=== PATIENT | female | born 1985 | race Caucasian/White ===

== ENCOUNTER 2017-07-11 17:29 | Emergency (ER) | payer SELFPAY ==
[~2017-07-11] VITALS: Ht 160 cm; Wt 79.7 kg
[~2017-07-11 17:29] MED LIST: AZIT250T PO; CYCL-331 PO; FLUO20CA16 PO; HYDR-971 PO; LISD70CA5 PO; METH54TA5 PO; NAPR220C4 PO; OLAN5TAB3 PO; TRAM50TA PO; muscle relaxer
[2017-07-11 17:46] VITALS: BP 112/88
[2017-07-11] MEDS ORDERED: METH-38 PO (18:29)
[2017-07-11] MEDS ORDERED: NAPR500T PO (18:29)
--- NOTE | 2017-07-11 18:29 | PHYS DOC ---
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 She denies any prior injury to the toe or foot presents complaining of increasing achy pain in the ball the foot with radiation to the heel that is increasing with every walking step. Patient denies any localized redness or change in skin color but there is some localized swelling to the lateral aspect of the big toe. Patient denies any fevers, chills, change in sensation. Pain is worse with dorsiflexion better plantarflexion. Patient has specific pain over the base of the heel and lateral aspect of the big toe. She says pain does not radiate to the leg or knee. Patient also claims to have lower back pain although not new exacerbated by the new job. It is described as dull and achy with no radiation to the lower abdomen, upper back or bottom. She denies any bowel or bladder incontinence, she denies any UTI symptoms, vomiting, diarrhea, fevers, chills or weight loss. Patient specifically denies any trauma to her lower back pain is usually worse with movements better with immobilization. Review of Systems Review of Systems Constitutional: Denies fever or chills [] Eyes: Denies change in visual acuity, redness, or eye pain [] HENT: Denies nasal congestion or sore throat [] Respiratory: Denies cough or shortness of breath [] Cardiovascular: No additional information not addressed in HPI [] GI: Denies abdominal pain, nausea, vomiting, bloody stools or diarrhea [] : Denies dysuria or hematuria [] Musculoskeletal: Her main complaint for today's visit is lower back pain described as dull and achy and joint pain over the right toe all of the foot and heel. Integument: Denies rash or skin lesions [] Neurologic: Denies headache, focal weakness or sensory changes [] Endocrine: Denies polyuria or polydipsia [] All other systems were reviewed and found to be within normal limits, except as documented in this note. Allergies Allergies Allergies Coded Allergies Type Severity Reaction Last Updated Verified banana Allergy Intermediate 01/30/15 Yes cefaclor Allergy Intermediate 01/30/15 No peanut Allergy Intermediate 01/30/15 Yes tree nut Allergy Intermediate 01/30/15 Yes watermelon Allergy Intermediate 01/30/15 Yes Physical Exam Physical Exam Vital signs noted on the chart within normal limits. Constitutional: Well developed, well nourished, no acute distress, non-toxic appearance. She is mildly obese. [] Cardiovascular:Heart rate regular rhythm, no murmur [] Lungs & Thorax: Bilateral breath sounds clear to auscultation [] Abdomen: Bowel sounds normal, soft, no tenderness, no masses, no pulsatile masses. [] Skin: Warm, dry, no erythema, no rash. [] Back: Has mild tenderness to palpation of the lumbar spine nothing midline no rash. Extremities: She has marked tender to palpation of the ball of foot with radiation of the aponeurosis of the heel. She has pain with passive dorsiflexion , she has tenderness over the longitudinal arch of the foot. There is focal tenderness to palpation of the lateral aspect of the big toe with localized swelling. Neurologic: Alert and oriented X 3, normal motor function, normal sensory function, no focal deficits noted. [] Psychologic: Affect normal, judgement normal, mood normal. [] Current Patient Data Vital Signs Vital Signs Date Time Temp Pulse Resp B/P (MAP) Pulse Ox O2 Delivery O2 Flow Rate FiO2 07/11/17 17:46 98.4 79 18 99 Room Air EKG EKG [] Radiology/Procedures Radiology/Procedures []Review left foot films reviewed and read by me demonstrate no obvious signs of fracture on the metatarsals that she is complaining about pain or the phalanx of the big toe. There is no soft tissue swelling no foreign body noted Course & Med Decision Making Course & Med Decision Making Pertinent Labs and Imaging studies reviewed. (See chart for details) []She presents with accommodation what I believe is a lower back strain, and possibly plantar fasciitis with a local inflammation secondary to heal fitting shoes while changing jobs recently to a job that she normally stands for long periods of time. Was able to doubt Person's neuroma or localized fracture. Patient may be suffering from metatarsalgia. Gait abnormalities with this change in job. Patient has negative x-rays at this time she may be suffering from a stress fracture given the increased activity she is presently doing right now her new job. Is also may be pain secondary to gait manifestation changes and ill fitting shoes. She's been provided a short course of Naprosyn and Robaxin for her back pain and foot pain after fall. Her primary care doctor for referral to podiatry if necessary. Anabella Disclaimer Feliciaon Disclaimer This electronic medical record was generated, in whole or in part, using a voice recognition dictation system. Departure Departure: Impression: Primary Impression: Metatarsalgia of left foot Additional Impressions: Foot pain, left Low back pain Disposition: HOME, SELF-CARE Condition: STABLE Referrals: PCP,NO (PCP) Patient Instructions: Back Exercises, Back Injury Prevention, Back Pain in , Foot Sprain Additional Instructions: discharge: I've spoken with the patient and/or caregivers. I've explained the patient's condition, diagnosis and treatment plan based on information available to me at this time. I've answered the patient's and/or caregivers questions and addressed any concerns. The patient and/or caregivers have a good understanding the patient's diagnosis, condition and treatment plan as can be expected at this point. Vital signs have been stabilized. The patient's condition is stable for discharge from the emergency department. The patient will pursue further outpatient evaluation with her primary care provider or other designated consulting physician as outlined in the discharge instructions. Patient and/or caregivers are agreeable to this plan of care and follow-up instructions have been explained in detail. The patient and/or caregivers have received these instructions in written format and expressed understanding of these discharge instructions. The patient and her caregivers are aware that if any significant change in condition or worsening of symptoms should prompt him to immediately return to this of the closest emergency department. If an emergent department is not readily available I would encourage him to call 911. Scripts Naproxen (NAPROSYN) 500 Mg Tablet 1 TAB PO BID, #20 TAB 1 Refill Prov: ANAMIKA HENDRICKS MD 07/11/17 Methocarbamol (ROBAXIN-750) 750 Mg Tablet 1 TAB PO BID, #20 TAB Prov: ANAMIKA HENDRICKS MD 07/11/17 Problem Qualifiers ANAMIKA HENDRICKS MD Jul 11, 2017 18:29
[2017-07-11] MEDS ORDERED: HYDROcodone/APAP 5/325MG 1 TAB TABLET PO ONE (18:30)
[2017-07-11] MEDS ORDERED: NAPROXEN 500 MG TABLET PO ONE (18:30)
--- NOTE | 2017-07-12 08:02 | RAD ---
FOOT RIGHT 3V Clinical Indication: big toe pain Comparison: None. Findings: No acute fracture or malalignment. Os naviculare. Mild hallux valgus deformity. Small calcaneal enthesophyte. The joint spaces are maintained. Bony mineralization is normal for the patient's age. No significant soft tissue abnormality. No radiopaque foreign body. IMPRESSION: 1. No acute fracture or malalignment. 2. Mild hallux valgus deformity.
== END 2017-07-11 19:15 | disposition home or self-care (01) ==
LOC: ER 17:29
DX: M54.5 Low back pain (principal); M77.42 Metatarsalgia, left foot; M79.672 Pain in left foot; Z88.1 Allergy status to other antibiotic agents; Z91.018 Allergy to other foods; Z91.010 Allergy to peanuts
CPT/HCPCS: 73630; 99284

== ENCOUNTER 2017-08-03 22:13 | Emergency (ER) | payer SELFPAY ==
[~2017-08-03] VITALS: Ht 160 cm; Wt 88.5 kg
[~2017-08-03 22:13] MED LIST changes: +METH-38 PO; +NAPR-683 PO
[2017-08-03] MEDS ORDERED: IBUP400T18 PO (22:36)
[2017-08-03] MEDS ORDERED: IV NORMAL SALINE 1,000ML 1,000 ML IV SCH (23:00)
[2017-08-03] MEDS ORDERED: ONDANSETRON PF 4 MG/2 ML VIAL. IV ONE (23:00)
[2017-08-03] MEDS ORDERED: KETOROLAC 30 MG/ML VIAL. IV ONE (23:00)
[2017-08-03] MEDS ORDERED: CONTRAST GIVEN MC PRN (23:00)
[2017-08-03] MEDS ORDERED: IOHEXOL 300 MG/ML 75 ML VIAL. IV ONE (23:00)
[2017-08-03 23:37] LABS: BARBITURATES NEG (NEG); BENZODIAZEPINES NEG (NEG); CANNABINOIDS NEG (NEG); COCAINE NEG (NEG); METHADONE NEG (NEG); OPIATES NEG (NEG); PHENCYCLIDINE NEG (NEG)
[2017-08-03 23:40] LABS: AMPHETAMINE/METHAMPHETAMINE NEG (NEG)
[2017-08-03 23:46] LABS: BILIRUBIN,URINE NEG (NEG); CLARITY,URINE HAZY; COLOR,URINE STRAW; GLUCOSE,URINE NEG (NEG)
[2017-08-03 23:52] LABS: BACTERIA,URINE MOD /HPF (0-FEW); NITRITE,URINE NEG (NEG); SQUAMOUS EPITHELIAL CELL,UR MOD /LPF; UROBILINOGEN,URINE 0.2 mg/dL (0.2 mg/dL)
[2017-08-04 00:05] LABS: BASO # 0.1 x10^3/uL (0.0-0.2); BASO % 1 % (0-3); EOS # 0.2 x10^3/uL (0.0-0.7); EOS % 1 % (0-3); HEMATOCRIT 38.7 % (36.0-47.0); HEMOGLOBIN 13.3 g/dL (12.0-15.5); LYMPH % 35 % (24-48); MEAN CORPUSCULAR HEMOGLOBIN 29 pg (25-35); MEAN CORPUSCULAR HGB CONC 34 g/dL (31-37); MEAN CORPUSCULAR VOLUME 83 fL (79-100); MONO # 1.2 x10^3/uL (0.0-1.1); MONO % 8 % (0-9); NEUT # 7.7 x10^3uL (1.8-7.7); NEUT % 54 % (31-73); PLATELET COUNT 344 x10^3/uL (140-400); RED BLOOD COUNT 4.66 x10^6/uL (3.50-5.40); RED CELL DISTRIBUTION WIDTH 13.8 % (11.5-14.5); WHITE BLOOD COUNT 14.1 x10^3/uL (4.0-11.0)
[2017-08-04 00:20] LABS: ALBUMIN 3.3 g/dL (3.4-5.0); ALBUMIN/GLOBULIN RATIO 0.7 (1.0-1.7); CALCIUM 8.6 mg/dL (8.5-10.1); CREATININE 0.7 mg/dL (0.6-1.0); TOTAL PROTEIN 7.9 g/dL (6.4-8.2)
[2017-08-04 00:21] LABS: GFR 97.6; POTASSIUM 3.5 mmol/L (3.5-5.1); TOTAL BILIRUBIN 0.2 mg/dL (0.2-1.0)
--- NOTE | 2017-08-04 00:51 | PHYS DOC ---
General Chief Complaint: FLANK PAIN Stated Complaint: PAIN ON RT SIDE Time Seen by MD: 22:24 Source: patient, old records Exam Limitations: no limitations Problems: History of Present Illness Initial Comments Patient is a 31-year-old female who comes emergency Department complaining of right lower quadrant pain. Patient states that for the past month or so she's had intermittent episodes of right lower quadrant pain. She states that earlier today the symptoms worsen significantly and she became concerned she might have an appendicitis. She's had nausea but no vomiting she denies any stool changes and has had decreased appetite. She denies any urine or vaginal symptoms and her ED vital signs are stable. Timing/Duration: other Severity: severe Modifying Factors: improves with other Associated Symptoms: nausea/vomiting, other Allergies: Coded Allergies: banana (Verified Allergy, Intermediate, 08/03/17) cefaclor (Unverified Allergy, Intermediate, 08/03/17) peanut (Verified Allergy, Intermediate, 08/03/17) tree nut (Verified Allergy, Intermediate, 08/03/17) watermelon (Verified Allergy, Intermediate, 08/03/17) Past Medical History Medical History: other (ADD, bipolar disorder, suicide attempt with intentional overdose) Surgical History: tonsillectomy, other (left foot) Social History Smoker: quit greater than 1 year Alcohol: occasionally Drugs: marijuana (in the past) Review of Systems Constitutional: denies chills, denies diaphoresis, denies fever, malaise Respiratory: denies cough, denies shortness of breath, denies wheezing Cardiovascular: denies chest pain, denies palpitations, denies syncope Gastrointestinal: see HPI Genitourinary: denies dysuria, denies frequency, denies hematuria Musculoskeletal: denies joint swelling, denies muscle pain, denies neck pain Psychiatric/Neurological: see HPI, denies headache, denies numbness, denies paresthesia, denies weakness Physical Exam General Appearance: no apparent distress, obese Ear, Nose, Throat: hearing grossly normal, normal ENT inspection Neck: non-tender, supple Respiratory: normal breath sounds, no respiratory distress Cardiovascular: normal peripheral pulses, regular rate, rhythm Gastrointestinal: soft (nondistended, mild right sided abdominal discomfort for without rebound guarding or masses, negative Snell bowel sounds normal) Rectal: deferred Back: no CVA tenderness, no vertebral tenderness Extremities: non-tender, normal inspection Neurologic/Psychiatric: fiscal manager II-XII nml as tested, no motor/sensory deficits, alert, normal mood/affect, oriented x 3 Skin: normal color, warm/dry Orders, Labs, Meds Urine negative White blood cells 14.1, urinalysis with squamous epithelial contamination PATIENT: ANGUS GRIFFITHS ACCOUNT: [id number] : 1985 LOCATION: ER AGE: 31 SEX: F EXAM STATUS: REG ER ORD. PHYSICIAN: JUN MARMOLEJO DO REASON: RLQ pain r/o appy PROCEDURE: CT ABD PELV W/ IV CONTRST ONLY EXAM: CT ABDOMEN/PELVIS WITH CONTRAST. HISTORY: Right lower quadrant and flank pain. TECHNIQUE: Computed tomography of the abdomen and pelvis was performed after the intravenous administration of 75 mL Omnipaque 300. COMPARISON: April 29, 2015. FINDINGS: Lung windows through the visualized portions of the bases reveal mild atelectasis. Bone windows reveal no suspicious lesions. Hypoattenuation of the hepatic parenchyma suggests mild diffuse hepatic steatosis. The gallbladder, pancreas, spleen, adrenal glands and right kidney are unremarkable. A cyst laterally at the left lower pole is adjacent to a cortical scar measures 1.6 cm. This is decreased since the prior study. There are no renal or ureteral calculi. There is no hydronephrosis. The bladder is decompressed but demonstrates wall thickening. Scattered small lymph nodes within the mesentery are stable. None are pathologically enlarged. Mild stranding in the root of the mesentery most likely represents incidental mild mesenteric panniculitis. The appendix is not inflamed. An intrauterine device is relatively inferiorly placed within the uterus. The tines are not clearly within the cornus. This is unchanged. The ovaries are unremarkable by CT. There is no obstruction. IMPRESSION: 1. No evidence of appendicitis. No renal or ureteral calculi. No cause for acute pain is identified. 2. An intrauterine device is somewhat inferiorly placed in the uterus, but is unchanged since 2015. 3. Findings consistent with mild diffuse hepatic steatosis. *One or more of the following individualized dose reduction techniques were utilized for this examination: 1. Automated exposure control. 2. Adjustment of the mA and/or kV according to patient size. 3. Use of iterative reconstruction technique. Electronically signed by: Haroon Jeffrey MD (08/04/2017 12:50 AM) [facility] DICTATED AND SIGNED BY: SUGAR JEFFREY MD DATE: 08/04/1744 CC: PCP,NO; JUN MARMOLEJO DO ~ I discussed findings with the patient. No specific cause for her discomfort noted. After discussion patient asks "so from your evaluation to you see any reason why won't be able to get ?" I advised her that no fertility workup was undertaken however her IUD would likely prevent . She was persistent in asking if she would be able to get and it is apparent that she felt this evaluation may be an evaluation for fertility. I advised her she would need to follow-up with [facility] and that no specific cause for her discomfort was noted tonight. I discussed signs and symptoms to monitor and the need to follow-up for the results from her urine culture as the specimen was contaminated with skin cells. The patient's questions were answered her satisfaction she's had no new or progressive symptoms and no emergent condition exists. She expressed agreement and understanding with the treatment plan. Departure Time of Disposition: Disposition: HOME, SELF-CARE Diagnosis: abdominal pain nonspecific, leukocytosis Condition: GOOD Patient Instructions: Abdominal Pain (Nonspecific) Additional Instructions: Diet and activity as tolerated. [id number] Tylenol and ibuprofen as needed. Follow-up with your doctor on Sunday for recheck and urine culture results. Follow-up with sr. strategic sourcing manager for yearly exam. Return to ED with new or changing symptoms. JUN MARMOLEJO DO Aug 04, 2017 00:51
[2017-08-04 01:20] VITALS: BP 118/68
== END 2017-08-04 01:21 | disposition home or self-care (01) ==
LOC: ER 22:13
DX: R10.31 Right lower quadrant pain (principal); R11.10 Vomiting, unspecified; D72.829 Elevated white blood cell count, unspecified; F31.9 Bipolar disorder, unspecified; Z91.5 Personal history of self-harm; Z87.891 Personal history of nicotine dependence; F12.10 Cannabis abuse, uncomplicated; Z88.6 Allergy status to analgesic agent; Z91.018 Allergy to other foods; Z91.010 Allergy to peanuts
CPT/HCPCS: 36415; 74177; 80053; 80307; 81001; 81025; 83690; 85025; 87086; 96361; 96374; 96375; 99285; J1885; J2405; Q9967; G0479; J7030

== ENCOUNTER 2017-09-05 21:23 | Emergency (ER) | payer SELFPAY ==
[~2017-09-05] VITALS: Ht 160 cm; Wt 88.5 kg
[~2017-09-05 21:23] MED LIST changes: +IBUP400T18 PO
[2017-09-05] MEDS ORDERED: LIDOCAINE 1% Multi-Dose 20 ML VIAL. IJ ONE ×2 (22:00→22:15)
[2017-09-05] MEDS ORDERED: DIPHTH,PERTUSS(ACELL),TET TOX 0.5 ML DISP.SYRIN. VAX IM ONE (23:00)
[2017-09-05 23:01] VITALS: BP 128/73
[2017-09-05] MEDS ORDERED: IBUP400T18 PO (23:06)
[2017-09-05] MEDS ORDERED: HYDR-2758 PO (23:06)
--- NOTE | 2017-09-05 23:07 | PHYS DOC ---
Past History Past Medical History: Bipolar, Other Past Surgical History: Tonsillectomy, Other Alcohol Use: Occasionally Drug Use: None Adult General Chief Complaint Chief Complaint: LACERATION/AVULSION HPI HPI 31 yo F NATALIIA presented to the ED with a left hand laceration that occurred approximately 30 minutes prior to arrival. She was using a kitchen knife when she slipped and accidentally cut herself in the left hand. She denies any other injuries. Onset today. Location left hand. Duration constant. No alleviating or exacerbating factors present. Review of systems is negative for any other injuries. Negative for chest pain shortness of breath abdominal pain fevers or chills. All other review of systems is negative unless otherwise noted in history of present illness. ED course: 31-year-old female presenting to the emergency department today with left hand laceration. The wound was washed out with sterile saline. Patient's laceration was on the dorsal aspect of the webspace between the first and second phalanx. It was approximately 2 cm in length. No foreign bodies or tendon lacerations on evaluation. Examination was done in good lighting with good hemostasis. Superficial wound. The wound was anesthetized and then sutured. The patient was then discharged home to have her sutures removed in 7 days. They were to return if their symptoms worsened or if they were concerned for any reason. [id number] discharge instructions and return precautions were given. Patient's questions were answered to their satisfaction. Patient is comfortable with plan. Review of Systems Review of Systems SEE ABOVE. Current Medications Current Medications Current Medications Medications (Trade) Dose Ordered Sig/Geovanny Start Time Stop Time Status Last Admin Dose Admin Diphtheria/ Tetanus/Acell Pertussis (Boostrix) 0.5 ml ONCE ONCE 09/05/17 23:00 09/05/17 23:01 DC Lidocaine HCl 10 ml 1X ONCE 09/05/17 22:15 09/05/17 22:15 DC Allergies Allergies Allergies Coded Allergies Type Severity Reaction Last Updated Verified banana Allergy Intermediate 08/03/17 Yes cefaclor Allergy Intermediate 08/03/17 No peanut Allergy Intermediate 08/03/17 Yes tree nut Allergy Intermediate 08/03/17 Yes watermelon Allergy Intermediate 08/03/17 Yes Physical Exam Physical Exam SEE ABOVE Constitutional: Well developed, well nourished, no acute distress, non-toxic appearance. [] HENT: Normocephalic, atraumatic, bilateral external ears normal, oropharynx moist, no oral exudates, nose normal. [] Eyes: PERRLA, EOMI, conjunctiva normal, no discharge. [] Neck: Normal range of motion, no tenderness, supple, no stridor. [] Cardiovascular:Heart rate regular rhythm, no murmur [] Lungs & Thorax: Bilateral breath sounds clear to auscultation [] Abdomen: Bowel sounds normal, soft, no tenderness, no masses, no pulsatile masses. [] Skin: Warm, dry, no erythema, no rash. [] Back: No tenderness, no CVA tenderness. [] Extremities: The pts left hand is nl in color, palpable pulse, 2 sec cap refill , patient is able to make it a okay, given a thumbs up, and cross her fingers. She reports mild tingling sensation from the elbow down to the hand which is not consistent with her injury. She describes a diffuse tingling sensation. No foreign bodies or lacerations of tendons identified. SEE ABOVE. Patient demonstrates nl function including the ability to abduct, adduct, and oppose and flex the thumb. Neurologic: Alert and oriented X 3, normal motor function, normal sensory function, no focal deficits noted. [] Psychologic: Affect normal, judgement normal, mood normal. [] EKG EKG [] Radiology/Procedures Radiology/Procedures [] Course & Med Decision Making Course & Med Decision Making Pertinent Labs and Imaging studies reviewed. (See chart for details) [] Dragon Disclaimer Dragon Disclaimer This electronic medical record was generated, in whole or in part, using a voice recognition dictation system. Departure Departure: Impression: Primary Impression: Laceration of hand, left Disposition: 01 HOME, SELF-CARE Condition: STABLE Referrals: PCP,NO (PCP) Patient Instructions: Laceration Care, Adult Additional Instructions: Thank you for allowing us to participate in your care today. Followup with your primary care physician or here for suture removal in 7 days. Call your Primary Doctor tomorrow and inform them of your visit today. If you do not have a primary care provider you can ask for a list of our primary care providers. Return to the emergency department you have any new or concerning findings. This should be evaluated by the primary care physician and any necessary consulting services for continued management within a few days after discharge. Return to emergency room if you have any new or concerning symptoms including but not limited to fever, chills, nausea, vomiting, intractable pain, any new rashes, chest pain, shortness of air, uncontrolled bleeding, difficulty breathing, and/or vision loss. Scripts Ibuprofen (IBUPROFEN) 400 Mg Tablet 1 TAB PO PRN Q8HRS Y for PAIN, #20 TAB Prov: KYMBERLY TAYLOR MD 09/05/17 Hydrocodone Bit/Acetaminophen (HYDROCODONE-APAP 5-325 ) 1 Each Tablet 1 TAB PO PRN Q6HRS Y for PAIN, #6 TAB 0 Refills Prov: KYMBERLY TAYLOR MD 09/05/17 Laceration Repair Lac Repair Indication: laceration Procedure: The patient was placed in the appropriate position and anesthesia around the left hand. 1% lidocaine used around the wound. The area was then sterile saline. Total repaired wound length: 2 cm. Other Items: none The patient tolerated the procedure well. Complications: none. KYMBERLY TAYLOR MD Sep 05, 2017 23:07
[2017-09-05] MEDS ORDERED: IBUPROFEN 400 MG TABLET. PO ONE (23:15)
== END 2017-09-05 23:31 | disposition home or self-care (01) ==
LOC: ER 21:23
DX: S61.412A Laceration without foreign body of left hand, initial encounter (principal); Z88.1 Allergy status to other antibiotic agents; Z91.018 Allergy to other foods; Z91.010 Allergy to peanuts; W26.0XXA Contact with knife, initial encounter; Y93.89 Activity, other specified; Y99.8 Other external cause status; Y92.89 Other specified places as the place of occurrence of the external cause
CPT/HCPCS: 12001; 90471; 90715; 99283-25

== ENCOUNTER → 2018-01-14 | Outpatient (CLI) | payer OTHER ==
[~2018-01-14] MED LIST changes: +HYDR-2758 PO
--- NOTE | 2018-01-15 08:32 | RAD ---
Exam : Lumbar spine 01/15/2018. Comparison: None. Indication: Lower back pain, injury to the right side of the lower back Findings: 3 views of the lumbar spine demonstrate no acute fracture or subluxation. There are five lumbar type vertebral bodies. Minimal anterolisthesis of L4 on L5. The vertebral bodies demonstrate normal height with exception of minimal anterior wedging at L1, likely chronic. The intervertebral disc spaces are well maintained. Mild facet arthropathy at L5-S1. Impression: Minimal anterolisthesis of L4 on L5, likely secondary to facet arthropathy. Electronically signed by: Desiree Jaramillo MD (01/15/2018 8:28 AM) [id number]
== END | disposition home or self-care (01) ==
LOC: RAD 19:12
PROVIDERS: ATTEND Nurse Practitioner Family
DX: M54.5 Low back pain (principal)
CPT/HCPCS: 72100

== ENCOUNTER 2018-03-25 11:42 | Emergency (ER) | payer SELFPAY ==
[~2018-03-25] VITALS: Ht 160 cm; Wt 87.0 kg
[2018-03-25] MEDS ORDERED: IV NORMAL SALINE 1,000ML 1,000 ML IV SCH (12:14)
[2018-03-25 12:37] LABS: BACTERIA,URINE MOD /HPF (0-FEW); BILIRUBIN,URINE NEG (NEG); CLARITY,URINE HAZY; COLOR,URINE STRAW; GLUCOSE,URINE NEG (NEG); NITRITE,URINE NEG (NEG); RBC,URINE 0 /HPF (0-2); SQUAMOUS EPITHELIAL CELL,UR MOD /LPF; UROBILINOGEN,URINE 0.2 mg/dL (0.2 mg/dL)
[2018-03-25] MEDS ORDERED: KETOROLAC 30 MG/ML VIAL. IV ONE (12:45)
[2018-03-25] MEDS ORDERED: ONDANSETRON PF 4 MG/2 ML VIAL. IV ONE (12:45)
[2018-03-25 12:47] LABS: BASO % 0 % (0-3); EOS # 0.1 x10^3/uL (0.0-0.7); EOS % 1 % (0-3); HEMATOCRIT 38.3 % (36.0-47.0); LYMPH # 2.8 x10^3/uL (1.0-4.8); LYMPH % 20 % (24-48); MEAN CORPUSCULAR HEMOGLOBIN 28 pg (25-35); MEAN CORPUSCULAR HGB CONC 34 g/dL (31-37); MEAN CORPUSCULAR VOLUME 82 fL (79-100); MONO # 0.9 x10^3/uL (0.0-1.1); MONO % 6 % (0-9); NEUT % 72 % (31-73); PLATELET COUNT 351 x10^3/uL (140-400); RED BLOOD COUNT 4.69 x10^6/uL (3.50-5.40); RED CELL DISTRIBUTION WIDTH 14.5 % (11.5-14.5); WHITE BLOOD COUNT 13.8 x10^3/uL (4.0-11.0)
[2018-03-25 13:01] LABS: ALBUMIN 3.5 g/dL (3.4-5.0); ALBUMIN/GLOBULIN RATIO 0.7 (1.0-1.7); CALCIUM 8.6 mg/dL (8.5-10.1); CREATININE 0.7 mg/dL (0.6-1.0); POTASSIUM 4.1 mmol/L (3.5-5.1); TOTAL BILIRUBIN 0.4 mg/dL (0.2-1.0); TOTAL PROTEIN 8.3 g/dL (6.4-8.2)
--- NOTE | 2018-03-25 13:08 | PHYS DOC ---
Past History Past Medical History: Anxiety, Bipolar, Other Past Surgical History: Tonsillectomy, Other Smoking: Non-smoker Alcohol Use: Occasionally Drug Use: None Adult General Chief Complaint Chief Complaint: ABDOMINAL PAIN HPI HPI 32-year-old female patient complaining of sudden onset of right upper quadrant pain that woke her up about 3 AM as a constant sharp pain without radiation with episodes of waxing and waning. Patient complaining of 2-3episodes of vomiting and 5 or 6 episodes of nonbloody diarrhea and denies fever and chills, urinary symptoms, vaginal bleeding or discharge, sick contact, history of the same pain. Patient states she had a negative home test today because she had vaginal spotting for her last 2 menstruation. Review of Systems Review of Systems Constitutional: Denies fever or chills [] Eyes: Denies change in visual acuity, redness, or eye pain [] HENT: Denies nasal congestion or sore throat [] Respiratory: Denies cough or shortness of breath [] Cardiovascular: No additional information not addressed in HPI [] GI: Reports abdominal pain, nausea, vomiting, diarrhea [] : Denies dysuria or hematuria [] Musculoskeletal: Denies back pain or joint pain [] Integument: Denies rash or skin lesions [] Neurologic: Denies headache, focal weakness or sensory changes [] Endocrine: Denies polyuria or polydipsia [] All other systems were reviewed and found to be within normal limits, except as documented in this note. Current Medications Current Medications Current Medications Medications (Trade) Dose Ordered Sig/Geovanny Start Time Stop Time Status Last Admin Dose Admin Ketorolac Tromethamine (Toradol) 30 mg 1X ONCE 03/25/18 12:45 03/25/18 12:46 DC Ondansetron HCl (Zofran) 4 mg 1X ONCE 03/25/18 12:45 03/25/18 12:46 DC Sodium Chloride 1,000 ml @ 1,000 mls/hr Q1H 03/25/18 12:14 03/25/18 13:13 Allergies Allergies Allergies Coded Allergies Type Severity Reaction Last Updated Verified banana Allergy Intermediate 08/03/17 Yes cefaclor Allergy Intermediate 08/03/17 No peanut Allergy Intermediate 08/03/17 Yes tree nut Allergy Intermediate 08/03/17 Yes watermelon Allergy Intermediate 08/03/17 Yes Physical Exam Physical Exam Constitutional: Well developed, well nourished, mild distress, non-toxic appearance. [] HENT: Normocephalic, atraumatic, oropharynx moist, no oral exudates, nose normal. [] Eyes: PERRLA, EOMI, conjunctiva normal, no discharge. [] Neck: Normal range of motion, no tenderness, supple, no stridor. [] Cardiovascular:Heart rate regular rhythm, no murmur [] Lungs & Thorax: Bilateral breath sounds clear to auscultation [] Abdomen: Bowel sounds normal, soft, suprapubic guarding , no tenderness, no masses, no pulsatile masses. [] Skin: Warm, dry, no erythema, no rash. [] Back: No tenderness, no CVA tenderness. [] Extremities: No tenderness, no cyanosis, no clubbing, ROM intact, no edema. [] Neurologic: Alert and oriented X 3, normal motor function, normal sensory function, no focal deficits noted. [] Psychologic: Affect normal, judgement normal, mood normal. [] Current Patient Data Vital Signs Vital Signs Date Time Temp Pulse Resp B/P (MAP) Pulse Ox O2 Delivery O2 Flow Rate FiO2 03/25/18 12:35 75 18 120/68 (85) 98 Room Air 03/25/18 11:47 98.8 Lab Results Laboratory Tests Test 03/25/18 11:26 03/25/18 12:03 03/25/18 12:30 POC Urine HCG, Qualitative hcg negative (Negative) Urine Collection Type Unknown Urine Color Straw Urine Clarity Hazy Urine pH 5.0 Urine Specific [place] 1.025 Urine Protein Neg (NEG-TRACE) Urine Glucose (UA) Neg mg/dL (NEG) Urine Ketones (Stick) Neg mg/dL (NEG) Urine Blood Neg (NEG) Urine Nitrite Neg (NEG) Urine Bilirubin Neg (NEG) Urine Urobilinogen Dipstick 0.2 mg/dL (0.2 mg/dL) Urine Leukocyte Esterase Trace (NEG) Urine RBC 0 /HPF (0-2) Urine WBC 5-10 /HPF (0-4) Urine Squamous Epithelial Cells Mod /LPF Urine Bacteria Mod /HPF (0-FEW) White Blood Count 13.8 x10^3/uL (4.0-11.0) H Red Blood Count 4.69 x10^6/uL (3.50-5.40) Hemoglobin 13.0 g/dL (12.0-15.5) Hematocrit 38.3 % (36.0-47.0) Mean Corpuscular Volume 82 fL (79-100) Mean Corpuscular Hemoglobin 28 pg (25-35) Mean Corpuscular Hemoglobin Concent 34 g/dL (31-37) Red Cell Distribution Width 14.5 % (11.5-14.5) Platelet Count 351 x10^3/uL (140-400) Neutrophils (%) (Auto) 72 % (31-73) Lymphocytes (%) (Auto) 20 % (24-48) L Monocytes (%) (Auto) 6 % (0-9) Eosinophils (%) (Auto) 1 % (0-3) Basophils (%) (Auto) 0 % (0-3) Neutrophils # (Auto) 10.0 x10^3uL (1.8-7.7) H Lymphocytes # (Auto) 2.8 x10^3/uL (1.0-4.8) Monocytes # (Auto) 0.9 x10^3/uL (0.0-1.1) Eosinophils # (Auto) 0.1 x10^3/uL (0.0-0.7) Basophils # (Auto) 0.0 x10^3/uL (0.0-0.2) EKG EKG [] Radiology/Procedures Radiology/Procedures [[place] [address] IMAGING REPORT Signed PATIENT: ANGUS GRIFFITHS ACCOUNT: [id number] : 1985 LOCATION: ER AGE: 32 SEX: F EXAM STATUS: REG ER ORD. PHYSICIAN: BRAYAN GONCALVES MD REASON: right upper quadrant pain PROCEDURE: ABDOMEN LTD Limited abdominal ultrasound History: Right upper quadrant pain. Findings: Aorta: Patent Inferior vena cava: Patent Pancreas: Unremarkable Liver: Mildly enlarged, 19.8 cm. Coarse echogenicity suggests fatty infiltration. Gallbladder: No evidence of wall thickening or echogenic calculi. Positive sonographic Snell sign. Bile ducts: No evidence of dilatation Right kidney: 12.6 in longitudinal, no hydronephrosis. Impression: 1. Positive sonographic Snell sign, can indicate acute cholecystitis. No evidence of echogenic gallbladder calculus or wall thickening. 2. Mild hepatomegaly with suggestion of fatty infiltration. Electronically signed by: Brody Arias MD (03/25/2018 1:15 PM) [id number] DICTATED AND SIGNED BY: BRODY ARIAS MD DATE: 03/25/18 0989 CC: BRAYAN GONCALVES MD; JUAN LUIS KILPATRICK ~ ] Course & Med Decision Making Course & Med Decision Making Pertinent Labs and Imaging studies reviewed. (See chart for details) Evolution of patient in ER showed 32-year-old male patient with complaining of abdominal pain and nausea and vomiting and diarrhea since this morning. Patient treated with IV fluid and Zofran and Toradol and felt better and tolerated oral intake. Dragon Disclaimer Dragon Disclaimer This electronic medical record was generated, in whole or in part, using a voice recognition dictation system. Departure Departure: Impression: Primary Impression: Acute gastroenteritis Additional Impressions: Pain in the abdomen Urinary tract infection Disposition: 01 HOME, SELF-CARE (at 1411) Condition: IMPROVED Referrals: JUAN LUIS KILPATRICK (PCP) Patient Instructions: Urinary Tract Infection, Viral Gastroenteritis Additional Instructions: Drink plenty of liquids Follow-up with your primary care physician in 3-5 days Return to ER if not getting better Take liquid diet today Scripts Ciprofloxacin Hcl (CIPRO) 250 Mg Tablet 1 TAB PO BID, #6 TAB Prov: BRAYAN GONCALVES MD 03/25/18 Ondansetron (ZOFRAN ODT) 4 Mg Tab.rapdis 1 TAB SL Q8HRS, #15 TAB Prov: BRAYAN GONCALVES MD 03/25/18 Problem Qualifiers BRAYAN GONCALVES MD Mar 25, 2018 13:08
--- NOTE | 2018-03-25 13:19 | RAD ---
Limited abdominal ultrasound History: Right upper quadrant pain. Findings: Aorta: Patent Inferior vena cava: Patent Pancreas: Unremarkable Liver: Mildly enlarged, 19.8 cm. Coarse echogenicity suggests fatty infiltration. Gallbladder: No evidence of wall thickening or echogenic calculi. Positive sonographic Snell sign. Bile ducts: No evidence of dilatation Right kidney: 12.6 in longitudinal, no hydronephrosis. Impression: 1. Positive sonographic Snell sign, can indicate acute cholecystitis. No evidence of echogenic gallbladder calculus or wall thickening. 2. Mild hepatomegaly with suggestion of fatty infiltration. Electronically signed by: Brody Arias MD (03/25/2018 1:15 PM) [id number]
[2018-03-25] MEDS ORDERED: CIPR250T30 PO (14:14)
[2018-03-25] MEDS ORDERED: ONDA4TAB10 SL (14:14)
[2018-03-25 14:27] VITALS: BP 133/73
== END 2018-03-25 14:31 | disposition home or self-care (01) ==
LOC: ER 11:42
DX: K52.9 Noninfective gastroenteritis and colitis, unspecified (principal); N39.0 Urinary tract infection, site not specified; R16.0 Hepatomegaly, not elsewhere classified; Z88.1 Allergy status to other antibiotic agents; Z91.018 Allergy to other foods; Z91.010 Allergy to peanuts
CPT/HCPCS: 36415; 76705; 80053; 81001; 81025; 83690; 85025; 87086; 96361; 96374; 96375; 99285; J1885; J2405; J7030

== ENCOUNTER 2018-03-28 17:45 | Inpatient (IN) | payer SELFPAY ==
[~2018-03-28] VITALS: Ht 160 cm; Wt 88.5 kg
[~2018-03-28 17:45] MED LIST changes: +CIPR250T30 PO; +ONDA4TAB10 SL
--- NOTE | 2018-03-28 17:48 | ED.ADGEN ---
Past History Past Medical History: Anxiety, Bipolar, Other Past Surgical History: Tonsillectomy, Other Smoking: Non-smoker Alcohol Use: Occasionally Drug Use: None Adult General Chief Complaint Chief Complaint ".. I was seen the other day... and they did a US for gallbladder.. and they said results where okay.. My doctor Hortencia said I could resume my diet.. basically anything I wanted... but I am still hurting.. I did just eat some beer battered palauan fries... and now I am really hurting really bad.... My doctor sent me over to get checked for appendix...." HPI HPI Patient is a 32 year old female who presents with above hx and complaints currently dry heaving after consuming a meal of beer battered palauan fries. Review of ultrasound results completed on 03/25 showed no findings gallbladder wall thickening, but a positive Snell sign. Patient denies any trauma. Patient denies any ill contacts. Patient denies any travel. Patient normally follows with and Dr. Burnett. Review of Systems Review of Systems Constitutional: Denies fever or chills [] Eyes: Denies change in visual acuity, redness, or eye pain [] HENT: Denies nasal congestion or sore throat [] Respiratory: Denies cough or shortness of breath [] Cardiovascular: No additional information not addressed in HPI [] GI:Complaints of abdominal pain, nausea, vomiting. Denies, bloody stools or diarrhea [] : Denies dysuria or hematuria [] Musculoskeletal: Denies back pain or joint pain [] Integument: Denies rash or skin lesions [] Neurologic: Denies headache, focal weakness or sensory changes [] Endocrine: Denies polyuria or polydipsia [] All other systems were reviewed and found to be within normal limits, except as documented in this note. Family History Family History Gallbladder Current Medications Current Medications Current Medications Medications (Trade) Dose Ordered Sig/Geovanny Start Time Stop Time Status Last Admin Dose Admin Ciprofloxacin Lactate 200 ml @ 200 mls/hr BID 03/28/18 22:00 03/29/18 00:17 200 MLS/HR Diphenhydramine HCl (Benadryl) 50 mg 1X ONCE 03/28/18 20:30 03/28/18 20:32 DC 03/28/18 20:49 50 MG Famotidine (Pepcid Vial) 20 mg 1X ONCE 03/28/18 18:00 03/28/18 18:02 DC 03/28/18 18:39 20 MG Famotidine (Pepcid) 20 mg BID 03/28/18 22:00 Iohexol (Omnipaque 240 Mg/ml) 50 ml 1X ONCE 03/28/18 18:30 03/28/18 18:31 DC 03/28/18 19:15 50 ML Iohexol (Omnipaque 300 Mg/ml) 75 ml 1X ONCE 03/28/18 18:30 03/28/18 18:31 DC 03/28/18 19:15 75 ML Lactated Ringer's 1,000 ml @ 160 mls/hr Q6H15M 03/28/18 22:00 03/29/18 01:09 160 MLS/HR Metronidazole 100 ml @ 100 mls/hr Q8HRS 03/28/18 22:00 03/28/18 22:38 DC Morphine Sulfate (Morphine 10mg Syringe) 10 mg 1X ONCE 03/28/18 18:00 03/28/18 18:02 DC 03/28/18 18:43 10 MG Morphine Sulfate (Morphine 5mg Syringe) 10 mg PRN QID PRN 03/28/18 22:15 Ondansetron HCl (Zofran) 4 mg PRN Q4HRS PRN 03/28/18 22:00 03/29/18 21:59 03/29/18 01:09 4 MG Prochlorperazine Edisylate (Compazine) 10 mg 1X ONCE 03/28/18 20:45 03/28/18 20:46 DC 03/28/18 20:46 10 MG Promethazine HCl (Phenergan Im) 25 mg 1X ONCE 03/28/18 20:30 03/28/18 20:34 DC See Nursing for home meds. Allergies Allergies Allergies Coded Allergies Type Severity Reaction Last Updated Verified banana Allergy Intermediate 08/03/17 Yes cefaclor Allergy Intermediate 08/03/17 No peanut Allergy Intermediate 08/03/17 Yes tree nut Allergy Intermediate 08/03/17 Yes watermelon Allergy Intermediate 08/03/17 Yes Physical Exam Physical Exam Constitutional: in acute distress, non-toxic appearance. [] HENT: Normocephalic, atraumatic, bilateral external ears normal, oropharynx moist, no oral exudates, nose normal. [] Eyes: PERRLA, EOMI, conjunctiva normal, no discharge. [] Neck: Normal range of motion, no tenderness, supple, no stridor. [] Cardiovascular:Tachycardia Heart rate regular rhythm, no murmur [] Lungs & Thorax: Bilateral breath sounds equal at apexes on auscultation []Few scattered wheezes. Abdomen: Bowel sounds normal, soft, generalized tenderness, some localization to epigastric, RUQ, and RLQ, no masses, no pulsatile masses. [] Skin: Warm, dry, no erythema, no rash. [] Back: No tenderness, no CVA tenderness. [] Extremities: No tenderness, no cyanosis, no clubbing, ROM intact, no edema. [] Mild psoas on Rt. Neurologic: Alert and oriented X 3, normal motor function, normal sensory function, no focal deficits noted. [] Psychologic: Affect anxious., judgement normal, mood normal. [] Current Patient Data Vital Signs Vital Signs Date Time Temp Pulse Resp B/P (MAP) Pulse Ox O2 Delivery O2 Flow Rate FiO2 03/28/18 22:11 79 16 110/74 (86) 97 Room Air 03/28/18 17:50 98.7 Lab Results Laboratory Tests Test 03/28/18 17:57 03/28/18 18:34 White Blood Count 17.2 x10^3/uL (4.0-11.0) H Red Blood Count 4.78 x10^6/uL (3.50-5.40) Hemoglobin 13.4 g/dL (12.0-15.5) Hematocrit 39.5 % (36.0-47.0) Mean Corpuscular Volume 83 fL (79-100) Mean Corpuscular Hemoglobin 28 pg (25-35) Mean Corpuscular Hemoglobin Concent 34 g/dL (31-37) Red Cell Distribution Width 14.3 % (11.5-14.5) Platelet Count 405 x10^3/uL (140-400) H Neutrophils (%) (Auto) 68 % (31-73) Lymphocytes (%) (Auto) 23 % (24-48) L Monocytes (%) (Auto) 8 % (0-9) Eosinophils (%) (Auto) 1 % (0-3) Basophils (%) (Auto) 0 % (0-3) Neutrophils # (Auto) 11.7 x10^3uL (1.8-7.7) H Lymphocytes # (Auto) 4.0 x10^3/uL (1.0-4.8) Monocytes # (Auto) 1.3 x10^3/uL (0.0-1.1) H Eosinophils # (Auto) 0.2 x10^3/uL (0.0-0.7) Basophils # (Auto) 0.1 x10^3/uL (0.0-0.2) Segmented Neutrophils % 62 % (35-66) Lymphocytes % 31 % (24-48) Atypical Lymphocytes % (Manual) 1 % (0-0) H Monocytes % 6 % (0-10) Platelet Estimate Increased (ADEQUATE) Prothrombin Time 9.9 SEC (9.4-11.4) Prothrombin Time INR 1.0 (0.9-1.1) Maternal Serum HCG Beta Subunit < 1 mIU/mL (0-6) Sodium Level 139 mmol/L (136-145) Potassium Level 3.7 mmol/L (3.5-5.1) Chloride Level 101 mmol/L (98-107) Carbon Dioxide Level 29 mmol/L (21-32) Anion Gap 9 (6-14) Blood Urea Nitrogen 11 mg/dL (7-20) Creatinine 0.7 mg/dL (0.6-1.0) Estimated GFR (Cockcroft-Gault) 97.0 Glucose Level 82 mg/dL (70-99) Calcium Level 8.9 mg/dL (8.5-10.1) Total Bilirubin 0.3 mg/dL (0.2-1.0) Direct Bilirubin 0.1 mg/dL (0.0-0.2) Aspartate Amino Transferase (AST) 17 U/L (15-37) Alanine Aminotransferase (ALT) 29 U/L (14-59) Alkaline Phosphatase 118 U/L (46-116) H Creatine Kinase 66 U/L (26-192) Creatine Kinase MB (Mass) < 0.5 ng/mL (0.0-3.6) Creatine Kinase MB Relative Index 0.8 % (0-4) Troponin I Quantitative < 0.017 ng/mL (0-0.055) Total Protein 8.5 g/dL (6.4-8.2) H Albumin 3.6 g/dL (3.4-5.0) Lipase 134 U/L (73-393) Urine Collection Type Unknown Urine Color Yellow Urine Clarity Hazy Urine pH 5.5 Urine Specific [place] >=1.030 Urine Protein Neg (NEG-TRACE) Urine Glucose (UA) Neg mg/dL (NEG) Urine Ketones (Stick) Trace mg/dL (NEG) Urine Blood Neg (NEG) Urine Nitrite Neg (NEG) Urine Bilirubin Neg (NEG) Urine Urobilinogen Dipstick 0.2 mg/dL (0.2 mg/dL) Urine Leukocyte Esterase Trace (NEG) Urine RBC 1-2 /HPF (0-2) Urine WBC 5-10 /HPF (0-4) Urine Squamous Epithelial Cells Mod /LPF Urine Bacteria Few /HPF (0-FEW) Urine Mucus Marked /LPF Urine Opiates Screen Neg (NEG) Urine Methadone Screen Neg (NEG) Urine Barbiturates Neg (NEG) Urine Phencyclidine Screen Neg (NEG) Urine Amphetamine/Methamphetamine Neg (NEG) Urine Benzodiazepines Screen Neg (NEG) Urine Cocaine Screen Neg (NEG) Urine Cannabinoids Screen Neg (NEG) Urine Ethyl Alcohol Neg (NEG) EKG EKG My interpretation EKG shows sinus rate at 95 bpm. No acute morphology[] Radiology/Procedures Radiology/Procedures My interpretation acute abdomen film shows no acute cardiopulmonary processes. No free air in the diaphragm. Nonspecific bowel gas pattern[] Reviewed ultrasound results from 03/25/18- + Snell sign, no thicken gall bladder wall, fatty liver Course & Med Decision Making Course & Med Decision Making Pertinent Labs and Imaging studies reviewed. (See chart for details) Pt. to be admitted to Dr. Vanessa for further eval. and tx. . Biliary colic scan in morning. Keep NPO Pt. now to be admitted to Dr. Moraima erickson [employer] T[employer] [] Final Impression Final Impression 1. Abdomen pain 2. Nausea and vomiting[] 3. Biliary colic 4. Leukocytosis 5. UTI Dragon Disclaimer Dragon Disclaimer This electronic medical record was generated, in whole or in part, using a voice recognition dictation system. ARNULFO REYNA MD Mar 28, 2018 17:48
[2018-03-28] MEDS ORDERED: MORPHINE SULFATE 10 MG/ML SYRINGE. SQ ONE (18:00)
[2018-03-28] MEDS ORDERED: ONDANSETRON PF 4 MG/2 ML VIAL. IV ONE (18:00)
[2018-03-28] MEDS ORDERED: IV RINGERS SOLUTION,LACTATED 1,000 ML IV SCH (18:00)
[2018-03-28] MEDS ORDERED: FAMOTIDINE 20 MG/2 ML VIAL IVP ONE (18:00)
--- NOTE | 2018-03-28 18:21 | EKG ---
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
[2018-03-28] MEDS ORDERED: IOHEXOL 300 MG/ML 75 ML VIAL. IV ONE (18:30)
[2018-03-28] MEDS ORDERED: IOHEXOL 240 MG/ML 50ML VIAL. PO ONE (18:30)
[2018-03-28 18:41] LABS: BASO # 0.1 x10^3/uL (0.0-0.2); BASO % 0 % (0-3); EOS # 0.2 x10^3/uL (0.0-0.7); EOS % 1 % (0-3); HEMATOCRIT 39.5 % (36.0-47.0); HEMOGLOBIN 13.4 g/dL (12.0-15.5); LYMPH % 23 % (24-48); MEAN CORPUSCULAR HEMOGLOBIN 28 pg (25-35); MEAN CORPUSCULAR HGB CONC 34 g/dL (31-37); MEAN CORPUSCULAR VOLUME 83 fL (79-100); MONO # 1.3 x10^3/uL (0.0-1.1); MONO % 8 % (0-9); NEUT # 11.7 x10^3uL (1.8-7.7); NEUT % 68 % (31-73); PLATELET COUNT 405 x10^3/uL (140-400); RED BLOOD COUNT 4.78 x10^6/uL (3.50-5.40); RED CELL DISTRIBUTION WIDTH 14.3 % (11.5-14.5); WHITE BLOOD COUNT 17.2 x10^3/uL (4.0-11.0)
[2018-03-28 19:06] LABS: ALBUMIN 3.6 g/dL (3.4-5.0); ALK PHOS 118 U/L (46-116); ALT (SGPT) 29 U/L (14-59); ANION GAP 9 (6-14); AST (SGOT) 17 U/L (15-37); BLOOD UREA NITROGEN 11 mg/dL (7-20); CALCIUM 8.9 mg/dL (8.5-10.1); CARBON DIOXIDE 29 mmol/L (21-32); CHLORIDE 101 mmol/L (98-107); CREATININE 0.7 mg/dL (0.6-1.0); DIRECT BILIRUBIN 0.1 mg/dL (0.0-0.2); GLUCOSE 82 mg/dL (70-99); LIPASE 134 U/L (73-393); POTASSIUM 3.7 mmol/L (3.5-5.1); SODIUM 139 mmol/L (136-145); TOTAL BILIRUBIN 0.3 mg/dL (0.2-1.0); TOTAL PROTEIN 8.5 g/dL (6.4-8.2)
[2018-03-28 19:07] LABS: AMPHETAMINE/METHAMPHETAMINE NEG (NEG); BARBITURATES NEG (NEG); BENZODIAZEPINES NEG (NEG); CANNABINOIDS NEG (NEG); COCAINE NEG (NEG); METHADONE NEG (NEG); OPIATES NEG (NEG); PHENCYCLIDINE NEG (NEG)
[2018-03-28 19:19] LABS: BILIRUBIN,URINE NEG (NEG); CLARITY,URINE HAZY; COLOR,URINE YELLOW; GLUCOSE,URINE NEG (NEG); NITRITE,URINE NEG (NEG); UROBILINOGEN,URINE 0.2 mg/dL (0.2 mg/dL)
[2018-03-28 19:20] LABS: BACTERIA,URINE FEW /HPF (0-FEW); SQUAMOUS EPITHELIAL CELL,UR MOD /LPF
--- NOTE | 2018-03-28 19:59 | RAD ---
CT SCAN OF THE ABDOMEN AND PELVIS WITH IV CONTRAST. History: Right-sided abdominal pain nausea and diarrhea for 4 days Comparison:None. Procedure: Contiguous axial images of the abdomen and pelvis were performed after the administration of 75 cc of Omni 300 IV contrast and oral contrast. CT Abdomen with contrast: Findings: Liver: Unremarkable Spleen: Unremarkable Pancreas: Unremarkable Adrenal Glands: Unremarkable Kidneys: Small cyst mid left kidney was seen previously There is no mass or lymphadenopathy. There is no free air. There is no free fluid. Impression: No acute findings. End Impression CT Pelvis with Contrast: Findings: The urinary bladder appears normal. There is no free fluid. There is no lymphadenopathy. The appendix is not identified. Impression: No acute findings. PQRS Compliance Statement: One or more of the following individualized dose reduction techniques were utilized for this examination: 1. Automated exposure control 2. Adjustment of the mA and/or kV according to patient size 3. Use of iterative reconstruction technique Electronically signed by: Neto Donahue III, MD (03/28/2018 7:55 PM) [facility]
[2018-03-28] MEDS ORDERED: diphenhydrAMINE 50 MG/ML VIAL IVP ONE (20:30)
[2018-03-28] MEDS ORDERED: PROMETHAZINE IM 25 MG/ML VIAL IM ONE (20:30)
[2018-03-28 20:36] LABS: % LYMPHS 31 % (24-48); % MONOS 6 % (0-10); % SEGS 62 % (35-66)
[2018-03-28 20:37] LABS: PLT ESTIMATE INCREASED (ADEQUATE)
[2018-03-28] MEDS ORDERED: PROCHLORPERAZINE 10 MG/2 ML VIAL. IV ONE (20:45)
[2018-03-28 20:53] LABS: % ATYL 1 % (0-0)
[2018-03-28] MEDS: FAMOTIDINE 20 MG TABLET PO SCH (22:00)
[2018-03-28] MEDS ORDERED: ONDANSETRON PF 4 MG/2 ML VIAL. IV PRN (22:00)
[2018-03-28] MEDS ORDERED: MORPHINE SULFATE 5 MG/ML SYRINGE. IV PRN (22:15)
[2018-03-29] MEDS: CIPROFLOXACIN 400MG PREMIX 200 ML IV SCH ×2 (00:17→11:28)
[2018-03-29 00:56] VITALS: BP 106/72
[2018-03-29] MEDS ORDERED: MORPHINE SULFATE 10 MG/ML SYRINGE. ONE (01:07)
[2018-03-29] MEDS: IV RINGERS SOLUTION,LACTATED 1,000 ML IV SCH ×3 (01:09→11:27)
--- NOTE | 2018-03-29 01:15 | NUR ---
The patient, ANGUS GRIFFITHS, 32 y/o, F admitted by THEO BELL MD, was given written information regarding hospital policies, unit procedures and contact persons. Pt arrived to room 117 from ED via gurney, accompanied by [facility] and Estela CERVANTES. Pt admitted for c/o RLQ pain x 5 days, along with N/V/D. Pt reports she was previously treated in the ED for UTI a few days ago and has been taking Cipro PO, with little improvement. Pt saw her PCP in the office today and was sent to ED to r/o appendicitis. Pt is tearful and reports pain increases while actively vomiting, but is otherwise manageable. VSS. Retching upon arrival to unit, given PRN zofran per order. IV fluids initiated. at bedside. HIDA scan scheduled for AM, pt to remain NPO. Discussed POC, pt and V/U. Call light within reach. Will monitor. Valuables were checked and logged. Left in room with patient. Pt's did take her wallet home.
[2018-03-29 05:15] VITALS: BP 108/70
[2018-03-29 06:15] LABS: BASO # 0.1 x10^3/uL (0.0-0.2); BASO % 0 % (0-3); EOS # 0.3 x10^3/uL (0.0-0.7); EOS % 2 % (0-3); HEMATOCRIT 33.3 % (36.0-47.0); HEMOGLOBIN 11.1 g/dL (12.0-15.5); LYMPH # 2.8 x10^3/uL (1.0-4.8); LYMPH % 18 % (24-48); MEAN CORPUSCULAR HEMOGLOBIN 28 pg (25-35); MEAN CORPUSCULAR HGB CONC 33 g/dL (31-37); MEAN CORPUSCULAR VOLUME 83 fL (79-100); MONO % 6 % (0-9); NEUT # 11.3 x10^3uL (1.8-7.7); NEUT % 73 % (31-73); PLATELET COUNT 326 x10^3/uL (140-400); RED BLOOD COUNT 4.02 x10^6/uL (3.50-5.40); RED CELL DISTRIBUTION WIDTH 14.3 % (11.5-14.5); WHITE BLOOD COUNT 15.4 x10^3/uL (4.0-11.0)
[2018-03-29 06:16] LABS: CREATININE 0.7 mg/dL (0.6-1.0); POTASSIUM 4.1 mmol/L (3.5-5.1)
--- NOTE | 2018-03-29 08:00 | RAD ---
CLINICAL INDICATION: ABDOMINAL PAIN COMPARISON: None. FINDINGS and IMPRESSION: PA view of the chest in an upright position, AP views of the abdomen were obtained in upright and supine positions. Chest: Heart is not enlarged. Mediastinal and hilar contours are normal. No focal parenchymal airspace opacity. No pleural effusion or pneumothorax. Abdomen: Large volume colonic stool content. No abnormal small bowel dilatation. No abnormal soft tissue mass effect. No evidence for free intraperitoneal gas. Electronically signed by: Edmund Miranda MD (03/29/2018 7:56 AM) [facility]
--- NOTE | 2018-03-29 09:00 | NUR ---
PT down for HIDA scan, complaints of abdominal pain. Per nuc med patient can not of morphine due to interaction with scan, patient aware and understands.
[2018-03-29] MEDS ORDERED: SINCALIDE 1.8 MCG in IV NORMAL SALINE 50ML 30 ML IV ONE (10:00)
[2018-03-29 11:16] VITALS: BP 121/79
[2018-03-29] MEDS: FAMOTIDINE 20 MG TABLET PO SCH (11:28)
--- NOTE | 2018-03-29 11:37 | RAD ---
HEPATOBILIARY SCAN WITH EJECTION FRACTION Indication: Abdominal pain, nausea and vomiting for one week Comparison: CT abdomen pelvis March 28, 2018. Procedure: Serial static images are obtained of the liver and biliary system following IV administration of 5.5 mCi of 99 M technetium Choletec. After filling the gallbladder, 1.8 mcg of Sincalide was administered intravenously and the gallbladder ejection fraction was measured. Findings: There is homogeneous distribution throughout the liver. There is normal filling of the gallbladder and normal emptying into the biliary system and small bowel. The gallbladder ejection fraction measures 9% (normal gallbladder EF is 35% or greater). Impression: 1. No evidence of acute cholecystitis or biliary obstruction. 2. Gallbladder ejection fraction is low at 9 %. In the proper clinical setting, findings could be compatible with chronic cholecystitis. Electronically signed by: Brody Jansen MD (03/29/2018 11:33 AM) [id number]
[2018-03-29] MEDS ORDERED: MORPHINE SULFATE 10 MG/ML SYRINGE. IV PRN (12:15)
[2018-03-29] MEDS ORDERED: MORPHINE SULFATE 2 MG/ML DISP.SYRIN. IV PRN (12:15)
--- NOTE | 2018-03-29 13:00 | NUR ---
Dr. Vanessa and patient discussed HIDA scan and plan of care, plan is to discharge today and to follow a low fat diet.
--- NOTE | 2018-03-29 13:54 | PDOC1 ---
History of Present Illness History of Present Illness 32-year-old female presented to the emergency department with complaint of nausea vomiting and right upper quadrant pain since eating a double quarter pounder one week ago. Since that time she's had some mild intermittent nausea and discomfort, earlier today she ate some beer batter uzbek fries which reactivated her severe right upper quadrant pain nausea and vomiting. She presented to the emergency department dry heaving complaining of severe pain. She had a gallbladder ultrasound on March 25 which was reportedly negative. States her doctor told her she could resume normal diet with no restrictions. In the emergency department her white blood cell count was elevated at 17,000 and urine was positive for infection but liver function tests and lipase were normal. She was admitted to the general medical floor and a HIDA scan ordered. HIDA revealed an ejection fraction of 9 consistent with chronic cholecystitis. Her symptoms are improved since admission she denies any discomfort and is sitting up in bed hungry and wanting to go home and eat a buffalo burger she has saved. Her vitals have been stable and she denies any new or worsening symptoms. She'll be discharged home with pain and nausea medication as well as antibiotics. I discussed dietary restrictions and modifications at length with her however over the course of the past year with these symptoms she has learned what will cause an exacerbation of what will not. Past medical history: Anxiety, bipolar disorder, chronic intermittent right upper quadrant abdominal pain Past surgical history: Tonsillectomy Social history: Denies tobacco or illicit substances occasional alcohol intake lives with her Chief Complaint: ABDOMINAL PAIN Allergies: Coded Allergies: banana (Verified Allergy, Intermediate, 08/03/17) cefaclor (Unverified Allergy, Intermediate, 08/03/17) peanut (Verified Allergy, Intermediate, 08/03/17) tree nut (Verified Allergy, Intermediate, 08/03/17) watermelon (Verified Allergy, Intermediate, 08/03/17) Review of Systems Review Of Systems Fourteen system , review of systems has been reviewed. See HPI for pertinent positives and negative responses, other yen all other systems are negative, non pertinent or non contributory Medications Current Medications Lactated Ringer's 1,000 ml @ 1,000 mls/hr Q1H IV Last administered on at 18:35; Start 03/28/18 at 18:00; Stop 03/28/18 at 18:59; Status DC Ondansetron HCl (Zofran) 8 mg 1X ONCE IV Last administered on 03/28/18at 18:37 ; Start 03/28/18 at 18:00; Stop 03/28/18 at 18:02; Status DC Famotidine (Pepcid Vial) 20 mg 1X ONCE IVP Last administered on 03/28/18at 18: 39; Start 03/28/18 at 18:00; Stop 03/28/18 at 18:02; Status DC Morphine Sulfate (Morphine 10mg Syringe) 10 mg 1X ONCE SQ Last administered on 03/28/18at 18:43; Start 03/28/18 at 18:00; Stop 03/28/18 at 18:02; Status DC Iohexol (Omnipaque 240 Mg/ml) 50 ml 1X ONCE PO Last administered on 03/28/18at 19:15; Start 03/28/18 at 18:30; Stop 03/28/18 at 18:31; Status DC Iohexol (Omnipaque 300 Mg/ml) 75 ml 1X ONCE IV Last administered on 03/28/18at 19:15; Start 03/28/18 at 18:30; Stop 03/28/18 at 18:31; Status DC Promethazine HCl (Phenergan Im) 25 mg 1X ONCE IM ; Start 03/28/18 at 20:30; Stop 03/28/18 at 20:34; Status DC Diphenhydramine HCl (Benadryl) 50 mg 1X ONCE IVP Last administered on at 20:49; Start 03/28/18 at 20:30; Stop 03/28/18 at 20:32; Status DC Metronidazole 100 ml @ 100 mls/hr 1X ONCE IV Last administered on 03/28/18at 20:58; Start 03/28/18 at 20:45; Stop 03/28/18 at 21:44; Status DC Prochlorperazine Edisylate (Compazine) 10 mg 1X ONCE IV Last administered on at 20:46; Start 03/28/18 at 20:45; Stop 03/28/18 at 20:46; Status DC Ondansetron HCl (Zofran) 4 mg PRN Q4HRS PRN IV NAUSEA/VOMITING Last administered on 03/29/18at 01:09; Start 03/28/18 at 22:00; Stop 03/29/18 at 21:59 Morphine Sulfate (Morphine 5mg Syringe) 10 mg PRN QID PRN IV PAIN; Start at 22:15; Stop 03/29/18 at 12:05; Status DC Famotidine (Pepcid) 20 mg BID PO Last administered on 03/29/18at 11:28; Start at 22:00 Lactated Ringer's 1,000 ml @ 160 mls/hr Q6H15M IV Last administered on at 11:27; Start 03/28/18 at 22:00 Metronidazole 100 ml @ 100 mls/hr Q8HRS IV ; Start 03/28/18 at 22:00; Stop at 22:38; Status DC Ciprofloxacin Lactate 200 ml @ 200 mls/hr BID IV Last administered on at 11:28; Start 03/28/18 at 22:00 Metronidazole 100 ml @ 100 mls/hr Q8HRS IV ; Start 03/29/18 at 06:00; Stop at 06:00; Status DC Metronidazole 100 ml @ 100 mls/hr Q8HRS IV Last administered on 03/29/18at 06: 02; Start 03/29/18 at 06:00 Morphine Sulfate (Morphine 10mg Syringe) 10 mg STK-MED ONCE .ROUTE Last administered on 03/29/18at 01:43; Start 03/29/18 at 01:07; Stop 03/29/18 at 01:09 ; Status DC Sincalide 1.8 mcg/ Sodium Chloride 30 ml @ 0 mls/hr 1X ONCE IV Last administered on 03/29/18at 10:20; Start 03/29/18 at 10:00; Stop 03/29/18 at 10:01 ; Status DC Lactobacillus Rhamnosus (Culturelle) 1 cap BID PO ; Start 03/29/18 at 21:00 Morphine Sulfate (Morphine 10mg Syringe) 10 mg PRN QID PRN IV PAIN; Start 03/29 at 12:15; Stop 03/29/18 at 12:17; Status DC Morphine Sulfate (Morphine 2mg Syringe) 2 mg PRN Q4HRS PRN IV PAIN Last administered on 8/17/18at 12:28; Start 03/29/18 at 12:15 Active Scripts Active Cipro (Ciprofloxacin Hcl) 250 Mg Tablet 1 Tab PO BID Zofran Odt (Ondansetron) 4 Mg Tab.rapdis 1 Tab SL Q8HRS Ibuprofen 400 Mg Tablet 1 Tab PO PRN Q8HRS PRN Exam Vital Signs Vital Signs Date Time Temp Pulse Resp B/P (MAP) Pulse Ox O2 Delivery O2 Flow Rate FiO2 03/29/18 12:28 96 Room Air 03/29/18 11:16 97.9 76 20 121/79 (93) General Appearance: Alert, Oriented X3, No acute distress HEENT: Atraumatic, PERRLA, EOMI, Mucous membr. moist/pink Respiratory: Clear to auscultation, Normal air movement Heart: Normal S1, Normal S2, No murmurs Abdominal: Soft (nondistended, bowel sounds are present no masses, mild right upper quadrant tenderness no rebound or guarding negative McBurney) Extremities: No clubbing, No cyanosis, No edema Skin: No rashes, No breakdown Neuro: Normal speech, Strength at 5/5 X4 ext, Sensation intact, Cranial nerves 3-12 NL Psych/Mental Status: Mental status NL, Mood NL Assessment/Plan Assessment/Plan Chronic cholecystitis Dietary modifications [place] 5 mg, Zofran ODT Follow-up with her doctor this week for recheck and to schedule outpatient general surgical evaluation for cholecystectomy COURSE Allergies Coded Allergies Type Severity Reaction Last Updated Verified banana Allergy Intermediate 08/03/17 Yes cefaclor Allergy Intermediate 08/03/17 No peanut Allergy Intermediate 08/03/17 Yes tree nut Allergy Intermediate 08/03/17 Yes watermelon Allergy Intermediate 08/03/17 Yes Laboratory Tests Test 03/28/18 17:57 03/28/18 18:34 03/29/18 05:52 White Blood Count 17.2 x10^3/uL (4.0-11.0) 15.4 x10^3/uL (4.0-11.0) Red Blood Count 4.78 x10^6/uL (3.50-5.40) 4.02 x10^6/uL (3.50-5.40) Hemoglobin 13.4 g/dL (12.0-15.5) 11.1 g/dL (12.0-15.5) Hematocrit 39.5 % (36.0-47.0) 33.3 % (36.0-47.0) Mean Corpuscular Volume 83 fL (79-100) 83 fL (79-100) Mean Corpuscular Hemoglobin 28 pg (25-35) 28 pg (25-35) Mean Corpuscular Hemoglobin Concent 34 g/dL (31-37) 33 g/dL (31-37) Red Cell Distribution Width 14.3 % (11.5-14.5) 14.3 % (11.5-14.5) Platelet Count 405 x10^3/uL (140-400) 326 x10^3/uL (140-400) Neutrophils (%) (Auto) 68 % (31-73) 73 % (31-73) Lymphocytes (%) (Auto) 23 % (24-48) 18 % (24-48) Monocytes (%) (Auto) 8 % (0-9) 6 % (0-9) Eosinophils (%) (Auto) 1 % (0-3) 2 % (0-3) Basophils (%) (Auto) 0 % (0-3) 0 % (0-3) Neutrophils # (Auto) 11.7 x10^3uL (1.8-7.7) 11.3 x10^3uL (1.8-7.7) Lymphocytes # (Auto) 4.0 x10^3/uL (1.0-4.8) 2.8 x10^3/uL (1.0-4.8) Monocytes # (Auto) 1.3 x10^3/uL (0.0-1.1) 1.0 x10^3/uL (0.0-1.1) Eosinophils # (Auto) 0.2 x10^3/uL (0.0-0.7) 0.3 x10^3/uL (0.0-0.7) Basophils # (Auto) 0.1 x10^3/uL (0.0-0.2) 0.1 x10^3/uL (0.0-0.2) Segmented Neutrophils % 62 % (35-66) Lymphocytes % 31 % (24-48) Atypical Lymphocytes % (Manual) 1 % (0-0) Monocytes % 6 % (0-10) Platelet Estimate Increased (ADEQUATE) Prothrombin Time 9.9 SEC (9.4-11.4) Prothromb Time International Ratio 1.0 (0.9-1.1) Maternal Serum HCG Beta Subunit < 1 mIU/mL (0-6) Sodium Level 139 mmol/L (136-145) 139 mmol/L (136-145) Potassium Level 3.7 mmol/L (3.5-5.1) 4.1 mmol/L (3.5-5.1) Chloride Level 101 mmol/L (98-107) 104 mmol/L (98-107) Carbon Dioxide Level 29 mmol/L (21-32) 29 mmol/L (21-32) Anion Gap 9 (6-14) 6 (6-14) Blood Urea Nitrogen 11 mg/dL (7-20) 9 mg/dL (7-20) Creatinine 0.7 mg/dL (0.6-1.0) 0.7 mg/dL (0.6-1.0) Estimated GFR (Cockcroft-Gault) 97.0 97.0 Glucose Level 82 mg/dL (70-99) 129 mg/dL (70-99) Calcium Level 8.9 mg/dL (8.5-10.1) 8.0 mg/dL (8.5-10.1) Total Bilirubin 0.3 mg/dL (0.2-1.0) Direct Bilirubin 0.1 mg/dL (0.0-0.2) Aspartate Amino Transf (AST/SGOT) 17 U/L (15-37) Alanine Aminotransferase (ALT/SGPT) 29 U/L (14-59) Alkaline Phosphatase 118 U/L (46-116) Creatine Kinase 66 U/L (26-192) Creatine Kinase MB (Mass) < 0.5 ng/mL (0.0-3.6) Creatine Kinase MB Relative Index 0.8 % (0-4) Troponin I Quantitative < 0.017 ng/mL (0-0.055) Total Protein 8.5 g/dL (6.4-8.2) Albumin 3.6 g/dL (3.4-5.0) Lipase 134 U/L (73-393) Urine Collection Type Unknown Urine Color Yellow Urine Clarity Hazy Urine pH 5.5 Urine Specific [place] >=1.030 Urine Protein Neg (NEG-TRACE) Urine Glucose (UA) Neg mg/dL (NEG) Urine Ketones (Stick) Trace mg/dL (NEG) Urine Blood Neg (NEG) Urine Nitrite Neg (NEG) Urine Bilirubin Neg (NEG) Urine Urobilinogen Dipstick 0.2 mg/dL (0.2 mg/dL) Urine Leukocyte Esterase Trace (NEG) Urine RBC 1-2 /HPF (0-2) Urine WBC 5-10 /HPF (0-4) Urine Squamous Epithelial Cells Mod /LPF Urine Bacteria Few /HPF (0-FEW) Urine Mucus Marked /LPF Urine Opiates Screen Neg (NEG) Urine Methadone Screen Neg (NEG) Urine Barbiturates Neg (NEG) Urine Phencyclidine Screen Neg (NEG) Urine Amphetamine/Methamphetamine Neg (NEG) Urine Benzodiazepines Screen Neg (NEG) Urine Cocaine Screen Neg (NEG) Urine Cannabinoids Screen Neg (NEG) Urine Ethyl Alcohol Neg (NEG) Current Medications Medications (Trade) Dose Ordered Sig/Geovanny Route PRN Reason Start Time Stop Time Status Last Admin Dose Admin Lactated Ringer's 1,000 ml @ 1,000 mls/hr Q1H IV 03/28/18 18:00 03/28/18 18:59 DC 03/28/18 18:35 Ondansetron HCl (Zofran) 8 mg 1X ONCE IV 03/28/18 18:00 03/28/18 18:02 DC 03/28/18 18:37 Famotidine (Pepcid Vial) 20 mg 1X ONCE IVP 03/28/18 18:00 03/28/18 18:02 DC 03/28/18 18:39 Morphine Sulfate (Morphine 10mg Syringe) 10 mg 1X ONCE SQ 03/28/18 18:00 03/28/18 18:02 DC 03/28/18 18:43 Iohexol (Omnipaque 240 Mg/ml) 50 ml 1X ONCE PO 03/28/18 18:30 03/28/18 18:31 DC 03/28/18 19:15 Iohexol (Omnipaque 300 Mg/ml) 75 ml 1X ONCE IV 03/28/18 18:30 03/28/18 18:31 DC 03/28/18 19:15 Promethazine HCl (Phenergan Im) 25 mg 1X ONCE IM 03/28/18 20:30 03/28/18 20:34 DC Diphenhydramine HCl (Benadryl) 50 mg 1X ONCE IVP 03/28/18 20:30 03/28/18 20:32 DC 03/28/18 20:49 Metronidazole 100 ml @ 100 mls/hr 1X ONCE IV 03/28/18 20:45 03/28/18 21:44 DC 03/28/18 20:58 Prochlorperazine Edisylate (Compazine) 10 mg 1X ONCE IV 03/28/18 20:45 03/28/18 20:46 DC 03/28/18 20:46 Ondansetron HCl (Zofran) 4 mg PRN Q4HRS PRN IV NAUSEA/VOMITING 03/28/18 22:00 03/29/18 21:59 03/29/18 01:09 Morphine Sulfate (Morphine 5mg Syringe) 10 mg PRN QID PRN IV PAIN 03/28/18 22:15 03/29/18 12:05 DC Famotidine (Pepcid) 20 mg BID PO 03/28/18 22:00 03/29/18 11:28 Lactated Ringer's 1,000 ml @ 160 mls/hr Q6H15M IV 03/28/18 22:00 03/29/18 11:27 Metronidazole 100 ml @ 100 mls/hr Q8HRS IV 03/28/18 22:00 03/28/18 22:38 DC Ciprofloxacin Lactate 200 ml @ 200 mls/hr BID IV 03/28/18 22:00 03/29/18 11:28 Metronidazole 100 ml @ 100 mls/hr Q8HRS IV 03/29/18 06:00 03/29/18 06:00 DC Metronidazole 100 ml @ 100 mls/hr Q8HRS IV 03/29/18 06:00 03/29/18 06:02 Morphine Sulfate (Morphine 10mg Syringe) 10 mg STK-MED ONCE .ROUTE 03/29/18 01:07 03/29/18 01:09 DC 03/29/18 01:43 Sincalide 1.8 mcg/ Sodium Chloride 30 ml @ 0 mls/hr 1X ONCE IV 03/29/18 10:00 03/29/18 10:01 DC 03/29/18 10:20 Lactobacillus Rhamnosus (Culturelle) 1 cap BID PO 03/29/18 21:00 Morphine Sulfate (Morphine 10mg Syringe) 10 mg PRN QID PRN IV PAIN 03/29/18 12:15 03/29/18 12:17 DC Morphine Sulfate (Morphine 2mg Syringe) 2 mg PRN Q4HRS PRN IV PAIN 03/29/18 12:15 03/29/18 12:28 I & O 03/29/18 00:00 Intake Total 1100 ml Balance 1100 ml Orders Procedure Category Date Status Time Vital Signs ER 03/28/18 Transmitted 17:56 Bp Monitoring ER 03/28/18 Transmitted 17:56 Continuous Pulse ER 03/28/18 Transmitted Oximetry 17:56 Saline Lock ER 03/28/18 Transmitted 17:56 Cbc W Autodiff LAB 03/28/18 Complete 17:56 Ua, Cult If Indicated LAB 03/28/18 Complete 17:56 Lipase LAB 03/28/18 Complete 17:56 Basic Metabolic Panel LAB 03/28/18 Complete 17:56 Hepatic Panel LAB 03/28/18 Complete 17:56 Troponin I LAB 03/28/18 Complete 17:56 Creatine Kinase LAB 03/28/18 Complete 17:56 Ckmb Isoenzymes LAB 03/28/18 Complete 17:56 Protime LAB 03/28/18 Complete 17:56 Beta-Hcg, Serum LAB 03/28/18 Complete 17:56 Drugs Of Abuse Ur LAB 03/28/18 Complete 17:56 Acute Abdomen Series RAD 03/28/18 Resulted 17:56 Ct Abd Pelv W/Oral&Iv CT 03/28/18 Resulted Contrast 17:56 12 Lead Ekg EKG 03/28/18 Complete 17:56 Pulse Oximetry: SAIMA 03/28/18 In Process Standing Order 17:56 Iv Ringers PHA 03/28/18 Complete Solution,Lactated (Iv 18:00 Ondansetron Pf PHA 03/28/18 Complete (Zofran) 18:00 Famotidine Pf (Pepcid PHA 03/28/18 Complete Vial) 18:00 Morphine Sulfate PHA 03/28/18 Complete (Morphine 10mg 18:00 Iohexol 240 Mg/Ml PHA 03/28/18 Complete (Omnipaque 240 Mg/Ml) 18:30 Iohexol 300 Mg/Ml PHA 03/28/18 Complete (Omnipaque 300 Mg/Ml) 18:30 Manual Differential LAB 03/28/18 Complete 17:57 Urine Culture EDINSON 03/28/18 In Process 19:21 Promethazine Im PHA 03/28/18 Complete (Phenergan Im) 20:30 Diphenhydramine PHA 03/28/18 Complete (Benadryl) 20:30 Metronidazole 500mg PHA 03/28/18 Complete Premix (Flagyl Premi 20:45 Prochlorperazine PHA 03/28/18 Complete (Compazine) 20:45 [place] Order ADT 03/28/18 Transmitted 22:00 Code Status CODE 03/28/18 Transmitted 22:00 Vital Signs, Per SAIMA 03/28/18 In Process Protocol 22:00 Nothing By Mouth DIET 03/29/18 Transmitted Breakfast Ambulate With SAIMA 03/28/18 In Process Assistance 22:00 Fall Precautions SAIMA 03/28/18 In Process 22:00 Cbc W Autodiff LAB 03/29/18 Complete 06:00 Basic Metabolic Panel LAB 03/29/18 Complete 06:00 Ondansetron Pf PHA 03/28/18 In Process (Zofran) 22:00 Incentive Spirometer RT 03/28/18 Complete Incentive Spirometry SAIMA 03/28/18 In Process 22:00 Pneumatic Compression SAIMA 03/28/18 In Process Device 22:00 Iv Ringers PHA 03/28/18 In Process Solution,Lactated (Iv 22:00 Nm Hepatobiliary Scan NM 03/29/18 Resulted W Pharm 08:00 Morphine Sulfate PHA 03/28/18 Complete (Morphine 5mg Syringe) 22:15 Famotidine (Pepcid) PHA 03/28/18 In Process 22:00 Metronidazole 500mg PHA 03/28/18 Complete Premix (Flagyl Premi 22:00 Metronidazole 500mg PHA 03/29/18 Complete Premix (Flagyl Premi 06:00 Ciprofloxacin 400mg PHA 03/28/18 In Process Premix (Cipro 400mg 22:00 Metronidazole 500mg PHA 03/29/18 In Process Premix (Flagyl Premi 06:00 Morphine Sulfate PHA 03/29/18 Complete (Morphine 10mg 01:07 High Risk Dc CONS 03/29/18 Transmitted Readmission 02:26 Notify Provider No SAIMA 03/29/18 In Process Vte Prophyl 02:43 Vte Low Risk OTHER 03/29/18 Transmitted 02:43 Sincalide (Kinevac) PHA 03/29/18 Complete 10:00 Admit Orders ADT 03/29/18 Transmitted 10:37 Lactobacillus PHA 03/29/18 In Process Rhamnosus Gg 21:00 Morphine Sulfate PHA 03/29/18 Complete (Morphine 10mg 12:15 Morphine Sulfate PHA 03/29/18 In Process (Morphine 2mg Syringe) 12:15 Discharge From ADT 03/29/18 Transmitted Hospital Vital Signs Date Time Temp Pulse Resp B/P (MAP) Pulse Ox O2 Delivery O2 Flow Rate FiO2 03/29/18 12:28 96 Room Air 03/29/18 11:16 97.9 76 20 121/79 (93) ALLEN MARMOLEJO DO Mar 29, 2018 13:54
--- NOTE | 2018-03-29 14:25 | NUR ---
Patient discharged at this time with belongings and prescriptions for zofran and [place]. Patient understands discharge plans for gallbladder inflammation. Patient ambulated off unit independently to car with at this time.
[2018-03-29] MEDS ORDERED: LACTOBACILLUS RHAMNOSUS GG 1 CAPSULE. PO SCH (21:00)
== END 2018-03-29 14:25 | disposition home or self-care (01) | DRG 445 ==
LOC: ER 17:45 → 1 SOUTH 23:55
PROVIDERS: ADMIT Internal Medicine; ATTEND Internal Medicine
DX: K80.50 Calculus of bile duct without cholangitis or cholecystitis without obstruction (principal); N39.0 Urinary tract infection, site not specified; F41.9 Anxiety disorder, unspecified; Z91.010 Allergy to peanuts; D72.829 Elevated white blood cell count, unspecified; F31.9 Bipolar disorder, unspecified; Z88.8 Allergy status to other drugs, medicaments and biological substances; Z91.018 Allergy to other foods; Z90.49 Acquired absence of other specified parts of digestive tract
CPT/HCPCS: 36415; 74022; 74177; 78226; 80048; 80076; 80307; 81001; 82553; 83690; 84484; 84702; 85007; 85025; 85610; 87086; 93005; 96361; 96365; 96372; 96374; 96375; A9537; G0238; J0744; J0780; J1200; J2270; J2405; J2805; J3490; J7120; Q9966; Q9967; S0028; 99285-25; G0479

== ENCOUNTER 2018-06-04 23:54 | Emergency (ER) | payer SELFPAY ==
[~2018-06-04] VITALS: Ht 160 cm; Wt 85.7 kg
--- NOTE | 2018-06-05 00:36 | PHYS DOC ---
Past History Past Medical History: No Pertinent History Past Surgical History: Tonsillectomy Smoking: Non-smoker Alcohol Use: Occasionally Drug Use: None Adult General Chief Complaint Chief Complaint: ABDOMINAL PAIN [facility] HPI 32-year-old female presents with left lower quadrant abdominal pain. This pain started suddenly around 7 PM. The patient was not doing anything strenuous. She describes the pain as a deep cramping sensation. She has not had pain like this before except when she had a miscarriage. Her menses is late this month, but she started bleeding today. She presents with concern for miscarriage. The pain has decreased in intensity since arrival, but was building again during my exam. She denies fever or chills. She did have one episode of diarrhea today. She has also had intermittent nausea last 3 days. The patient took 2 hydrocodone before coming to the emergency room. She stated these did improve her pain. Review of Systems Review of Systems Constitutional: Denies fever or chills [] Eyes: Denies change in visual acuity, redness, or eye pain [] HENT: Denies nasal congestion or sore throat [] Respiratory: Denies cough or shortness of breath [] Cardiovascular: No additional information not addressed in HPI [] GI: LLQ abdominal pain[] : Denies dysuria or hematuria [] Musculoskeletal: Denies back pain or joint pain [] Integument: Denies rash or skin lesions [] Neurologic: Denies headache, focal weakness or sensory changes [] Endocrine: Denies polyuria or polydipsia [] All other systems were reviewed and found to be within normal limits, except as documented in this note. Allergies Allergies Allergies Coded Allergies Type Severity Reaction Last Updated Verified banana Allergy Intermediate 08/03/17 Yes cefaclor Allergy Intermediate 08/03/17 No peanut Allergy Intermediate 08/03/17 Yes tree nut Allergy Intermediate 08/03/17 Yes watermelon Allergy Intermediate 08/03/17 Yes Physical Exam Physical Exam Constitutional: Well developed, well nourished, no acute distress, non-toxic appearance. [] HENT: Normocephalic, atraumatic, bilateral external ears normal, oropharynx moist, no oral exudates, nose normal. [] Eyes: PERRLA, EOMI, conjunctiva normal, no discharge. [] Neck: Normal range of motion, no tenderness, supple, no stridor. [] Cardiovascular:Heart rate regular rhythm, no murmur [] Lungs & Thorax: Bilateral breath sounds clear to auscultation [] Abdomen: Suprapubic and left lower quadrant abdominal pain without rebound or guarding. [] Skin: Warm, dry, no erythema, no rash. [] Back: No tenderness, no CVA tenderness. [] Extremities: No tenderness, no cyanosis, no clubbing, ROM intact, no edema. [] Neurologic: Alert and oriented X 3, normal motor function, normal sensory function, no focal deficits noted. [] Psychologic: Affect normal, judgement normal, mood normal. [] Current Patient Data Vital Signs Vital Signs Date Time Temp Pulse Resp B/P (MAP) Pulse Ox O2 Delivery O2 Flow Rate FiO2 06/05/18 00:03 98.0 74 20 98 Room Air Lab Results Laboratory Tests Test 06/05/18 00:20 POC Urine HCG, Qualitative hcg negative (Negative) EKG EKG [] Radiology/Procedures Radiology/Procedures [] Impressions: Preliminary interpretation: KUB shows a nonspecific bowel gas pattern. Some stool retention in the ascending and transverse colon. INDICATION: lt pelvic pain started today COMPARISON: None. TECHNIQUE: Grayscale and color ultrasound images uterus and adnexa. Transabdominal and transvaginal images obtained. FINDINGS: Uterus: 80 x 37 x 36 mm. Endometrial Stripe: 6 mm. Right Ovary: 31 x 18 x 15 mm. Left Ovary: 25 x 17 x 15 mm. Vascular flow identified to bilateral ovaries. IMPRESSION: 1. Vascular flow seen to the ovaries. Electronically signed by: Cassy Watson MD (06/05/2018 2:50 AM) [facility] DICTATED AND SIGNED BY: CASSY WATSON MD DATE: 06/05/18 0248 CC: JOSE COOPER DO; JUAN LUIS KILPATRICK ~ Course & Med Decision Making Course & Med Decision Making Pertinent Labs and Imaging studies reviewed. (See chart for details) The patient's urine is negative. Her KUB is unremarkable. The patient' s urinalysis is negative for infection. Based on the history and physical exam seems is the most likely diagnosis is the beginning of her menstruation. It is also possible that she has had a leaking or ruptured ovarian cyst. Her vital signs are stable. She has no fever. Her pain is improved with pain medication. The patient's labs are remarkable for elevated white count. Review of her chart shows count is persistently elevated for the last 3 years. Her pelvic ultrasound and is unremarkable. No ovarian torsion. This is likely menstrual cramps or possible small leaking cyst. [] Dragon Disclaimer Dragon Disclaimer This electronic medical record was generated, in whole or in part, using a voice recognition dictation system. Departure Departure: Referrals: JUA NLUIS KILPATRICK (PCP) JOSE COOPER DO Jun 05, 2018 00:36
[2018-06-05 00:52] LABS: BACTERIA,URINE 0 /HPF (0-FEW); BILIRUBIN,URINE NEG (NEG); CLARITY,URINE CLEAR; COLOR,URINE YELLOW; GLUCOSE,URINE NEG (NEG); NITRITE,URINE NEG (NEG); SQUAMOUS EPITHELIAL CELL,UR FEW /LPF; UROBILINOGEN,URINE 0.2 mg/dL (0.2 mg/dL); WBC,URINE OCC /HPF (0-4)
[2018-06-05] MEDS ORDERED: ONDANSETRON PF 4 MG/2 ML VIAL. IV ONE (01:15)
[2018-06-05] MEDS ORDERED: KETOROLAC 30 MG/ML VIAL. IV ONE (01:15)
[2018-06-05] MEDS ORDERED: IV NORMAL SALINE 1,000ML 1,000 ML IV ONE (01:15)
[2018-06-05 01:31] LABS: BASO # 0.1 x10^3/uL (0.0-0.2); BASO % 1 % (0-3); EOS # 0.1 x10^3/uL (0.0-0.7); EOS % 1 % (0-3); HEMATOCRIT 35.2 % (36.0-47.0); HEMOGLOBIN 12.2 g/dL (12.0-15.5); LYMPH # 4.1 x10^3/uL (1.0-4.8); LYMPH % 26 % (24-48); MEAN CORPUSCULAR HEMOGLOBIN 28 pg (25-35); MEAN CORPUSCULAR HGB CONC 35 g/dL (31-37); MEAN CORPUSCULAR VOLUME 81 fL (79-100); MONO % 7 % (0-9); NEUT # 10.1 x10^3uL (1.8-7.7); NEUT % 65 % (31-73); PLATELET COUNT 329 x10^3/uL (140-400); RED BLOOD COUNT 4.37 x10^6/uL (3.50-5.40); WHITE BLOOD COUNT 15.4 x10^3/uL (4.0-11.0)
[2018-06-05 01:42] LABS: ALBUMIN 3.2 g/dL (3.4-5.0); ALBUMIN/GLOBULIN RATIO 0.7 (1.0-1.7); CALCIUM 8.6 mg/dL (8.5-10.1); CREATININE 0.7 mg/dL (0.6-1.0); POTASSIUM 3.9 mmol/L (3.5-5.1); TOTAL BILIRUBIN 0.3 mg/dL (0.2-1.0); TOTAL PROTEIN 7.6 g/dL (6.4-8.2)
[2018-06-05 01:47] LABS: % BANDS 1 % (0-9); % BASOS 1 % (0-3); % EOS 3 % (0-5); % LYMPHS 25 % (24-48); % MONOS 3 % (0-10); % SEGS 67 % (35-66); PLT ESTIMATE ADEQUATE (ADEQUATE)
--- NOTE | 2018-06-05 02:53 | RAD ---
INDICATION: lt pelvic pain started today COMPARISON: None. TECHNIQUE: Grayscale and color ultrasound images uterus and adnexa. Transabdominal and transvaginal images obtained. FINDINGS: Uterus: 80 x 37 x 36 mm. Endometrial Stripe: 6 mm. Right Ovary: 31 x 18 x 15 mm. Left Ovary: 25 x 17 x 15 mm. Vascular flow identified to bilateral ovaries. IMPRESSION: 1. Vascular flow seen to the ovaries. Electronically signed by: Rakan Watson MD (06/05/2018 2:50 AM) [facility]
[2018-06-05 03:00] VITALS: BP 110/71
--- NOTE | 2018-06-05 07:46 | RAD ---
KUB, 06/05/2018: HISTORY: Nausea, left lower quadrant abdominal pain The abdominal gas pattern is unremarkable. There is no evidence organomegaly. A lower pelvic calcification on the right is probably a phlebolith. The bony structures are unremarkable. IMPRESSION: No acute abdominal abnormality is detected. Electronically signed by: Jose Griffin MD (06/05/2018 7:43 AM) [facility] [place]
== END 2018-06-05 03:10 | disposition home or self-care (01) ==
LOC: ER 23:54
DX: R10.32 Left lower quadrant pain (principal); D72.829 Elevated white blood cell count, unspecified; R19.7 Diarrhea, unspecified
CPT/HCPCS: 36415; 74018; 76830; 76856; 80053; 81001; 81025; 85007; 85025; 96361; 96374; 96375; 99285; J1885; J2405; J7030

== ENCOUNTER 2018-08-27 20:59 | Emergency (ER) | payer OTHER ==
[~2018-08-27 20:59] MED LIST changes: +HYDR-2155 PO; -HYDR-2758 PO; +HYDR-3165 PO; -HYDR-971 PO
[2018-08-27 21:56] VITALS: BP 119/70
--- NOTE | 2018-08-27 22:58 | RAD ---
FINGER(S) RIGHT History: RIGHT MIDDLE FINGER INJURY. Comparison: None are available No evidence of an acute fracture or dislocation. Soft tissues appear grossly intact. IMPRESSION: No acute radiographic findings. Electronically signed by: Brody Arias MD (08/27/2018 10:54 PM) [facility]
--- NOTE | 2018-08-27 23:25 | PHYS DOC ---
Past History Past Medical History: No Pertinent History Past Surgical History: Tonsillectomy Smoking: Non-smoker Alcohol Use: None Drug Use: Marijuana Adult General Chief Complaint Chief Complaint: FINGER INJURY HPI HPI Patient is a 32 year old female who presents with complaint of right middle finger pain. Patient states that she accidentally dropped a dresser on her foot while she was attempting to move it in her home. This happened shortly prior to arrival. Patient states that she started to notice pain and swelling immediately after the injury. Patient states that she is able to slightly flex the affected finger but states this causes significant pain. Has not taken any medications prior to arrival. The patient states she wanted to make sure that she did not break her finger. Review of Systems Review of Systems Constitutional: Denies fever or chills [] Eyes: Denies change in visual acuity, redness, or eye pain [] HENT: Denies nasal congestion or sore throat [] Respiratory: Denies cough or shortness of breath [] Cardiovascular: Denies chest pain or edema[] GI: Denies abdominal pain, nausea, vomiting, bloody stools or diarrhea [] : Denies dysuria or hematuria [] Musculoskeletal: Right middle finger pain and swelling[] Integument: Denies rash or skin lesions [] Neurologic: Denies headache, focal weakness or sensory changes [] All other systems were reviewed and found to be within normal limits, except as documented in this note. Allergies Allergies Allergies Coded Allergies Type Severity Reaction Last Updated Verified banana Allergy Intermediate 08/03/17 Yes cefaclor Allergy Intermediate 08/03/17 No peanut Allergy Intermediate 08/03/17 Yes tree nut Allergy Intermediate 08/03/17 Yes watermelon Allergy Intermediate 08/03/17 Yes Physical Exam Physical Exam Constitutional: Well developed, well nourished, no acute distress, non-toxic appearance. [] HENT: Normocephalic, atraumatic, bilateral external ears normal, oropharynx moist, no oral exudates, nose normal. [] Eyes: PERRLA, EOMI, conjunctiva normal, no discharge. [] Neck: Normal range of motion, no tenderness, supple, no stridor. [] Cardiovascular:Heart rate regular rhythm, no murmur [] Lungs & Thorax: Bilateral breath sounds clear to auscultation [] Abdomen: Bowel sounds normal, soft, no tenderness, no masses, no pulsatile masses. [] Skin: Warm, dry, no erythema, no rash. [] Back: No tenderness, no CVA tenderness. [] Extremities: Right middle finger with abrasion along lateral aspect of proximal PIP joint, mild joint swelling to PIP joint with tenderness to palpation, no cyanosis, no clubbing, limited flexion in right middle finger, full extension present. [] Neurologic: Alert and oriented X 3, normal motor function, normal sensory function, no focal deficits noted. [] Current Patient Data Vital Signs Vital Signs Date Time Temp Pulse Resp B/P (MAP) Pulse Ox O2 Delivery O2 Flow Rate FiO2 08/27/18 21:56 97.8 83 20 97 Room Air Lab Results Laboratory Tests Test 08/27/18 22:23 POC Urine HCG, Qualitative hcg negative (Negative) EKG EKG Not performed[] Radiology/Procedures Radiology/[place] [address] IMAGING REPORT Signed PATIENT: ANGUS GRIFFITHS ACCOUNT: [id number] : 1985 LOCATION: ER AGE: 32 SEX: F EXAM STATUS: REG ER ORD. PHYSICIAN: DIONISIO HORN MD REASON: right middle finger injury PROCEDURE: FINGER(S) RIGHT FINGER(S) RIGHT History: RIGHT MIDDLE FINGER INJURY. Comparison: None are available No evidence of an acute fracture or dislocation. Soft tissues appear grossly intact. IMPRESSION: No acute radiographic findings. Electronically signed by: Brody Arias MD (08/27/2018 10:54 PM) [facility] [place] DICTATED AND SIGNED BY: BRODY ARIAS MD DATE: 08/27/18 2252 CC: DIONISIO HORN MD; JUAN LUIS KILPATRICK ~ [] Course & Med Decision Making Course & Med Decision Making Pertinent Labs and Imaging studies reviewed. (See chart for details) X-ray negative for fracture. Symptoms appear consistent with contusion to the middle finger. Advised use of ibuprofen and Tylenol for treatment and recommended cryotherapy and gentle range of motion as tolerated. Recommended follow-up in one week with primary doctor if symptoms are not improving and return to emergency department for any worsening symptoms. Patient was understanding and in agreement with treatment plan.[] Dragon Disclaimer Dragon Disclaimer This electronic medical record was generated, in whole or in part, using a voice recognition dictation system. Departure Departure: Impression: Primary Impression: Finger contusion Disposition: HOME, SELF-CARE Condition: IMPROVED Referrals: JUAN LUIS KILPATRICK (PCP) Patient Instructions: Crush Injury, Fingers or Toes, RICE - Routine Care for Injuries Additional Instructions: Follow-up with your primary doctor in 1 week if symptoms are not improving. Return to the emergency department for any worsening symptoms. Problem Qualifiers Primary Impression: Finger contusion Encounter type: initial encounter Finger: middle finger Damage to nail status: without damage Laterality: right Qualified Codes: S60.031A - Contusion of right middle finger without damage to nail, initial encounter DIONISIO HORN MD Aug 27, 2018 23:25
[2018-08-27] MEDS ORDERED: FAMOTIDINE 20 MG/2 ML VIAL IVP ONE (23:30)
[2018-08-27] MEDS ORDERED: IV NORMAL SALINE 1,000ML 1,000 ML IV SCH (23:30)
[2018-08-27] MEDS ORDERED: ONDANSETRON PF 4 MG/2 ML VIAL. IV ONE (23:30)
[2018-08-27] MEDS ORDERED: KETOROLAC 30 MG/ML VIAL. IV ONE (23:30)
[2018-08-27 23:44] LABS: BACTERIA,URINE 0 /HPF (0-FEW); BILIRUBIN,URINE NEG (NEG); CLARITY,URINE CLEAR; COLOR,URINE YELLOW; GLUCOSE,URINE NEG (NEG); NITRITE,URINE NEG (NEG); RBC,URINE 0 /HPF (0-2); SQUAMOUS EPITHELIAL CELL,UR OCC /LPF; UROBILINOGEN,URINE 0.2 mg/dL (0.2 mg/dL); WBC,URINE RARE /HPF (0-4)
== END 2018-08-27 23:46 | disposition home or self-care (01) ==
LOC: ER 20:59
DX: S60.031A Contusion of right middle finger without damage to nail, initial encounter (principal); Z88.1 Allergy status to other antibiotic agents; Z91.018 Allergy to other foods; W23.0XXA Caught, crushed, jammed, or pinched between moving objects, initial encounter; Y93.89 Activity, other specified; Y92.89 Other specified places as the place of occurrence of the external cause; Y99.8 Other external cause status
CPT/HCPCS: 73140; 81001; 81025; 99284

== ENCOUNTER 2018-09-28 16:56 | Emergency (ER) | payer SELFPAY ==
[~2018-09-28] VITALS: Ht 160 cm; Wt 87.5 kg
[2018-09-28 17:00] VITALS: BP 120/80
[2018-09-28] MEDS ORDERED: TRAM-48 PO (17:42)
--- NOTE | 2018-09-28 17:42 | PHYS DOC ---
Past History Past Medical History: No Pertinent History Past Surgical History: Tonsillectomy Smoking: Non-smoker Alcohol Use: None Drug Use: Marijuana Adult General Chief Complaint Chief Complaint: right knee pain HPI HPI Patient is a 33 year old female who presents with complaining of right knee pain. Patient denies injury but complaining of right knee pain for about 2 weeks that getting force with "with it and bearing weight. She denies injuries and focal neurodeficit. Review of Systems Review of Systems Constitutional: Denies fever or chills [] Eyes: Denies change in visual acuity, redness, or eye pain [] HENT: Denies nasal congestion or sore throat [] Respiratory: Denies cough or shortness of breath [] Cardiovascular: No additional information not addressed in HPI [] GI: Denies abdominal pain, nausea, vomiting, bloody stools or diarrhea [] : Denies dysuria or hematuria [] Musculoskeletal: Denies back pain, reports joint pain [] Integument: Denies rash or skin lesions [] Neurologic: Denies headache, focal weakness or sensory changes [] Endocrine: Denies polyuria or polydipsia [] All other systems were reviewed and found to be within normal limits, except as documented in this note. Allergies Allergies Allergies Coded Allergies Type Severity Reaction Last Updated Verified banana Allergy Intermediate 08/03/17 Yes cefaclor Allergy Intermediate 08/03/17 No peanut Allergy Intermediate 08/03/17 Yes tree nut Allergy Intermediate 08/03/17 Yes watermelon Allergy Intermediate 08/03/17 Yes Physical Exam Physical Exam Constitutional: Well developed, well nourished, mild acute distress, non-toxic appearance. [] HENT: Normocephalic, atraumatic Eyes: PERRLA, EOMI, conjunctiva normal, no discharge. [] Neck: Normal range of motion, no tenderness, supple, no stridor. [] Cardiovascular:Heart rate regular rhythm, no murmur [] Lungs & Thorax: Bilateral breath sounds clear to auscultation [] Skin: Warm, dry, no erythema, no rash. [] Back: No tenderness, no CVA tenderness. [] Extremities: Right knee without deformity or edema or ecchymosis, painful range of motion without neurovascular deficit, no tenderness, no cyanosis, no clubbing , ROM intact, no edema. [] Neurologic: Alert and oriented X 3, normal motor function, normal sensory function, no focal deficits noted. [] Psychologic: Affect normal, judgement normal, mood normal. [] EKG EKG [] Radiology/Procedures Radiology/Procedures [address] [address] IMAGING REPORT Signed PATIENT: ANGUS GRIFFITHS ACCOUNT: [id number] : 1985 LOCATION: ER AGE: 33 SEX: F EXAM STATUS: DEP ER ORD. PHYSICIAN: BRAYAN GONCALVES MD REASON: pain PROCEDURE: KNEE RIGHT 3V Examination: 3 views of the right knee History: right knee pain for one week COMPARISON: None available FINDINGS: Mild joint space loss identified in the medial compartment with small osteophyte formation. No acute fracture or dislocation identified. IMPRESSION: Mild degenerative changes medial compartment. If internal derangement is suspected MRI is recommended. Electronically signed by: Brendan Berrios MD (09/28/2018 8:45 PM) [facility] DICTATED AND SIGNED BY: BRENDAN BERRIOS MD DATE: 09/28/182042 CC: BRAYAN GONCALVES MD; JUAN LUIS KILPATRICK ~ Course & Med Decision Making Course & Med Decision Making Pertinent Imaging studies reviewed. (See chart for details) Evaluation of patient in ER showed 33-year-old female patient with complaining of chronic right knee pain without injury. X-ray showed DJD. Patient was advised to follow up with her primary care physician for evaluation and treatment of chronic knee pain. Dragon Disclaimer Dragon Disclaimer This electronic medical record was generated, in whole or in part, using a voice recognition dictation system. Departure Departure: Impression: Primary Impression: Right knee pain Disposition: 01 HOME, SELF-CARE Condition: STABLE Referrals: JUAN LUIS KILPATRICK (PCP) Patient Instructions: Knee Pain Additional Instructions: Apply ice on the affected area Use knee brace Follow-up with your primary care physician in 3-5 days Return to ER if not getting better Scripts Tramadol Hcl (ULTRAM) 50 Mg Tablet 50 MG PO PRN Q6HRS PRN for PAIN, #14 TAB Prov: BRAYAN GONCALVES MD 09/28/18 BRAYAN GONCALVES MD Sep 28, 2018 17:42
--- NOTE | 2018-09-28 20:48 | RAD ---
Examination: 3 views of the right knee History: right knee pain for one week COMPARISON: None available FINDINGS: Mild joint space loss identified in the medial compartment with small osteophyte formation. No acute fracture or dislocation identified. IMPRESSION: Mild degenerative changes medial compartment. If internal derangement is suspected MRI is recommended. Electronically signed by: Brendan Berrios MD (09/28/2018 8:45 PM) [facility]
== END 2018-09-28 18:00 | disposition home or self-care (01) ==
LOC: ER 16:56
DX: G89.29 Other chronic pain (principal); M25.561 Pain in right knee; Z88.1 Allergy status to other antibiotic agents; Z91.018 Allergy to other foods; Z91.010 Allergy to peanuts
CPT/HCPCS: 73562; 99283

== ENCOUNTER 2018-10-05 21:33 | Emergency (ER) | payer SELFPAY ==
[~2018-10-05] VITALS: Ht 160 cm; Wt 87.0 kg
[~2018-10-05 21:33] MED LIST changes: +TRAM-48 PO
[2018-10-05 21:40] VITALS: BP 114/69
[2018-10-05] MEDS ORDERED: INDO50CA5 PO (22:03)
--- NOTE | 2018-10-05 22:04 | PHYS DOC ---
Past History Past Medical History: Other Past Surgical History: Tonsillectomy Smoking: Non-smoker Alcohol Use: Occasionally Drug Use: None Adult General Chief Complaint Chief Complaint: KNEE INJURY HPI HPI Patient is a 33-year-old female who presents with complaint of right knee pain that has been going on for quite some time. She was seen here about a week ago for the same complaint and states that the pain is actually getting worse. She states that her knee is also been buckling and giving out on her. 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 She denies any recent injuries to her knee. Review of Systems Review of Systems Constitutional: Denies fever or chills [] Respiratory: Denies cough or shortness of breath [] Cardiovascular: No additional information not addressed in HPI [] Musculoskeletal: Positive right knee pain [] Integument: Denies rash or skin lesions [] Allergies Allergies Allergies Coded Allergies Type Severity Reaction Last Updated Verified banana Allergy Intermediate 08/03/17 Yes cefaclor Allergy Intermediate 08/03/17 No peanut Allergy Intermediate 08/03/17 Yes tree nut Allergy Intermediate 08/03/17 Yes watermelon Allergy Intermediate 08/03/17 Yes Physical Exam Physical Exam Constitutional: Well developed, well nourished, no acute distress, non-toxic appearance. [] Cardiovascular: Regular rate and rhythm[] Lungs & Thorax: Bilateral breath sounds clear to auscultation [] Extremities: Patient complains of tenderness to palpation in the bilateral joint line of right knee. Normal range of motion of right knee. No ligamentous laxity. [] EKG EKG [] Radiology/Procedures Radiology/Procedures [] Course & Med Decision Making Course & Med Decision Making Pertinent Labs and Imaging studies reviewed. (See chart for details) Patient seen and evaluated by your medical staff. I did review ER record from her recent visit. X-ray was reviewed and demonstrated some mild degenerative changes of the medial compartment. Given that patient has had no recent injury, I do not feel that additional imaging is necessary at this time. I've instructed patient that we will provide patient with knee immobilizer. She does have crutches at home. Dragon Disclaimer Dragon Disclaimer This electronic medical record was generated, in whole or in part, using a voice recognition dictation system. Departure Departure: Impression: Primary Impression: Right knee pain Disposition: HOME, SELF-CARE Condition: STABLE Referrals: JUAN LUIS KILPATRICK (PCP) Patient Instructions: Knee Pain Additional Instructions: Wear knee immobilizer for comfort. Follow-up with orthopedist for further evaluation and management. Scripts Indomethacin (INDOMETHACIN) 50 Mg Capsule 1 CAP PO TID PRN for PAIN, #30 CAP Prov: PAGE WALDRON Jr. DO 10/05/18 Problem Qualifiers Primary Impression: Right knee pain Chronicity: unspecified Qualified Codes: M25.561 - Pain in right knee PAGE WALDRON Jr. DO Oct 05, 2018 22:04
== END 2018-10-05 22:34 | disposition home or self-care (01) ==
LOC: ER 21:33
DX: M25.561 Pain in right knee (principal); Z88.1 Allergy status to other antibiotic agents; Z91.018 Allergy to other foods; Z91.010 Allergy to peanuts
CPT/HCPCS: 29505; 99283

== ENCOUNTER 2018-11-22 14:36 | Emergency (ER) | payer SELFPAY ==
[~2018-11-22] VITALS: Ht 157.5 cm; Wt 86.7 kg
[~2018-11-22 14:36] MED LIST changes: +INDO50CA5 PO
[2018-11-22 14:40] VITALS: BP 125/93
--- NOTE | 2018-11-22 15:02 | PHYS DOC ---
Past History Past Medical History: Arthritis, Other Past Surgical History: Tonsillectomy Smoking: Non-smoker Alcohol Use: Occasionally Drug Use: None Adult General Chief Complaint Chief Complaint: HAND PROBLEM HPI HPI Patient is a 33-year-old female presents complaining of right, dominant, hand pain after punching a wall and a door several times shortly prior to arrival. Denies punching anyone. Denies any homicidal or suicidal ideation. Increased pain with movement especially along the ring and small finger. No new numbness or tingling. No medicines were taken. Pain is sharp and moderate to severe.[] Review of Systems Review of Systems Constitutional: Denies fever or chills [] Eyes: Denies change in visual acuity, redness, or eye pain [] HENT: Denies nasal congestion or sore throat [] Respiratory: Denies cough or shortness of breath [] Cardiovascular: No chest pain or palpitations[] GI: Denies abdominal pain, nausea, vomiting, bloody stools or diarrhea [] : Denies dysuria or hematuria [] Musculoskeletal: Denies back pain, see history of present illness[] Integument: Denies rash or skin lesions [] Neurologic: Denies headache, focal weakness or sensory changes [] Endocrine: Denies polyuria or polydipsia [] All other systems were reviewed and found to be within normal limits, except as documented in this note. Allergies Allergies Allergies Coded Allergies Type Severity Reaction Last Updated Verified banana Allergy Intermediate 08/03/17 Yes cefaclor Allergy Intermediate 08/03/17 No peanut Allergy Intermediate 08/03/17 Yes tree nut Allergy Intermediate 08/03/17 Yes watermelon Allergy Intermediate 08/03/17 Yes Physical Exam Physical Exam Constitutional: Well developed, well nourished, mild discomfort, non-toxic appearance. [] HENT: Normocephalic, atraumatic, bilateral external ears normal, oropharynx moist, no oral exudates, nose normal. [] Eyes: PERRLA, EOMI, conjunctiva normal, no discharge. [] Neck: Normal range of motion, no tenderness, supple, no stridor. [] Cardiovascular:Heart rate regular rhythm, no murmur [] Lungs & Thorax: Bilateral breath sounds clear to auscultation [] Abdomen: Not examined. [] Skin: Warm, dry, no erythema, no rash. [] Back: No tenderness, no CVA tenderness. [] Extremities: Tenderness in the proximal phalanx of the ring finger right side as well as the small finger right side. FDS, FDP, and extensor mechanisms are all intact, no rotational deformity is appreciated. No nail damage. 2 point discrimination is less than 5 mm. No cyanosis, no clubbing, ROM intact, no edema. [] Neurologic: Alert and oriented X 3, normal motor function, normal sensory function, no focal deficits noted. [] Psychologic: Affect normal, judgement normal, mood normal. [] EKG EKG [] Radiology/Procedures Radiology/Procedures 3 view study of the right hand Clinical indications: Punched a wall. Right hand pain. FINDINGS: No acute fracture or dislocation or lytic process. IMPRESSION: No acute fracture.[] Course & Med Decision Making Course & Med Decision Making Pertinent Labs and Imaging studies reviewed. (See chart for details) Medical decision making: There is no evidence of a fracture or dislocation. No evidence of neuro OR vascular compromise[] Dragon Disclaimer Dragon Disclaimer This electronic medical record was generated, in whole or in part, using a voice recognition dictation system. Departure Departure: Impression: Primary Impression: Contusion of right hand Disposition: HOME, SELF-CARE Condition: IMPROVED Referrals: JUAN LUIS KILPATRICK (PCP) Follow-up in 2 days Patient Instructions: Hand Contusion Additional Instructions: Follow-up with your regular doctor in 2 days. Return to the ER if increased pain or any other concerns. Scripts Meloxicam (MELOXICAM) 7.5 Mg Tablet 7.5 MG PO DAILY for PAIN, #20 TAB Prov: SANDIE HAN DO 11/22/18 Problem Qualifiers Primary Impression: Contusion of right hand Encounter type: initial encounter Qualified Codes: S60.221A - Contusion of right hand, initial encounter SANDIE HAN DO Nov 22, 2018 15:02
--- NOTE | 2018-11-22 15:08 | RAD ---
3 view study of the right hand Clinical indications: Punched a wall. Right hand pain. FINDINGS: No acute fracture or dislocation or lytic process. IMPRESSION: No acute fracture. Electronically signed by: Rudy Corcoran MD (11/22/2018 3:06 PM) [place] [id number]
[2018-11-22] MEDS ORDERED: IBUPROFEN 600 MG TABLET. PO ONE (15:15)
[2018-11-22] MEDS ORDERED: MELO7.5T29 PO (15:27)
== END 2018-11-22 15:45 | disposition home or self-care (01) ==
LOC: ER 14:36 → EEVIPCON 14:36 → ER 15:45
DX: S60.221A Contusion of right hand, initial encounter (principal); M19.90 Unspecified osteoarthritis, unspecified site; Z88.1 Allergy status to other antibiotic agents; Z91.018 Allergy to other foods; Z91.010 Allergy to peanuts; W22.01XA Walked into wall, initial encounter; Y93.89 Activity, other specified; Y92.89 Other specified places as the place of occurrence of the external cause; Y99.8 Other external cause status
CPT/HCPCS: 73130; 99284

== ENCOUNTER 2019-02-08 20:24 | Emergency (ER) | payer SELFPAY ==
[~2019-02-08] VITALS: Ht 157.5 cm; Wt 88.5 kg
[~2019-02-08 20:24] MED LIST changes: +MELO7.5T29 PO
--- NOTE | 2019-02-08 20:26 | ED.ADGEN ---
Past History Past Medical History: Arthritis, Other Past Surgical History: Tonsillectomy, Other Smoking: Non-smoker Alcohol Use: Occasionally Drug Use: None Adult General Chief Complaint Chief Complaint ".. Yesterday.. I looked down and there was a honeybee on my Lt. foot.. and before I knew it... it stung my 2 nd toe... I pulled out stinger.. but it gotten so tender, swollen and now some blistering.. I ve never been stung before... I talk to my nurse friend and she suggested put baking soda on it and take Benadryl.... I did do this. But it is hurting so badly started taking Advil... But the swelling has not gone down and has seems to be much worse.... HPI HPI Patient is a 33 year old female who presents with bee sting left second toe yesterday. Patient is well-developed marked localized reaction of erythema and swelling and blistering. Stain site appears to have some discoloration with localized skin breakdown. The entire second left toe was swollen as well as the foot. No striations. No adenopathy. Pain with weightbearing. Refill is less than 2 seconds. But is slightly more delayed in injured toe as compared to other toes. Patient has not had previous had any Bee stings. Remote history of a wasp pain to right arm which had significant swelling. Patient's tetanus is less than 5 years. No history immunosuppression. No hx of travel. No history of specific ill contacts. Patient has sensitive skin. Does have allergies . Review of Systems Review of Systems Constitutional: Denies fever or chills [] Eyes: Denies change in visual acuity, redness, or eye pain [] HENT: Denies nasal congestion or sore throat [] Respiratory: Denies cough or shortness of breath [] Cardiovascular: No additional information not addressed in HPI [] GI: Denies abdominal pain, nausea, vomiting, bloody stools or diarrhea [] : Denies dysuria or hematuria [] Musculoskeletal: Denies back pain or joint pain [] Integument: Denies rash or skin lesions [] Bee sting. Neurologic: Denies headache, focal weakness or sensory changes [] Endocrine: Denies polyuria or polydipsia [] All other systems were reviewed and found to be within normal limits, except as documented in this note. Family History Family History Noncontributory to presentation Current Medications Current Medications Current Medications Medications (Trade) Dose Ordered Sig/Geovanny Start Time Stop Time Status Last Admin Dose Admin Famotidine (Pepcid) 20 mg 1X ONCE 02/08/19 21:00 02/08/19 21:01 DC 02/08/19 20:45 20 MG Prednisone (Prednisone) 60 mg 1X ONCE 02/08/19 21:00 02/08/19 21:01 DC 02/08/19 20:45 60 MG See nursing for home meds Allergies Allergies Allergies Coded Allergies Type Severity Reaction Last Updated Verified banana Allergy Intermediate 08/03/17 Yes cefaclor Allergy Intermediate 08/03/17 No peanut Allergy Intermediate 08/03/17 Yes tree nut Allergy Intermediate 08/03/17 Yes watermelon Allergy Intermediate 08/03/17 Yes Physical Exam Physical Exam Constitutional: In acute distress, non-toxic appearance. [] HENT: Normocephalic, atraumatic, bilateral external ears normal, oropharynx moist, no oral exudates, nose normal. [] Eyes: PERRLA, EOMI, conjunctiva normal, no discharge. [] Neck: Normal range of motion, no tenderness, supple, no stridor. [] Cardiovascular:Heart rate regular rhythm, no murmur [] Lungs & Thorax: Bilateral breath sounds clear to auscultation [] Abdomen: Bowel sounds normal, soft, no tenderness, no masses, no pulsatile masses. [] Obese Skin: Warm, dry, no erythema, no rash. [] Except findings and left second toe and foot Back: No tenderness, no CVA tenderness. [] Extremities: No tenderness, no cyanosis, no clubbing, ROM intact, no edema. [] Except findings in left foot Neurologic: Alert and oriented X 3, normal motor function, normal sensory function, no focal deficits noted. [] Psychologic: Affect anxious, judgement normal, mood normal. [] Current Patient Data Vital Signs Vital Signs Date Time Temp Pulse Resp B/P (MAP) Pulse Ox O2 Delivery O2 Flow Rate FiO2 02/08/19 20:35 98.6 98 18 97 Room Air EKG EKG [] Radiology/Procedures Radiology/Procedures [] Course & Med Decision Making Course & Med Decision Making Pertinent Labs and Imaging studies reviewed. (See chart for details). Patient continue to take Benadryl, apply baking soda paste, cortisone ointment, Tylenol and ibuprofen for pain. Would increase Benadryl to 50 mg 4 times a day for itching. Would apply Polysporin 4 times a day and continue the hydrocortisone ointment. Take prednisone 50 mg a day for 5 days. Would add Zantac 150 mg twice a day. Consider desensitization to bee stings. Consider purchase of EpiPen for future stings with severe allergic reactions. Follow-up primary care. Return if any concerns. Patient developed signs of cellulitis to start Bactrim DS twice a day. Wear white socks . Keep foot elevated. After 3-4 days would consider starting Epson salt warm soaks to help mobilize the edema. [] Final Impression Final Impression 1. Bee sting- marked localized inflammatory response[] Dragon Disclaimer Dragon Disclaimer This electronic medical record was generated, in whole or in part, using a voice recognition dictation system. Discharge Summary Visit Information Final Diagnosis Problems Medical Problems: (1) Bee sting Status: Acute (2) Bee sting allergy Status: Acute Brief Hospital Course Allergies Allergies Coded Allergies Type Severity Reaction Last Updated Verified banana Allergy Intermediate 08/03/17 Yes cefaclor Allergy Intermediate 08/03/17 No peanut Allergy Intermediate 08/03/17 Yes tree nut Allergy Intermediate 08/03/17 Yes watermelon Allergy Intermediate 08/03/17 Yes Vital Signs Vital Signs Date Time Temp Pulse Resp B/P (MAP) Pulse Ox O2 Delivery O2 Flow Rate FiO2 02/08/19 20:35 98.6 98 18 97 Room Air Brief Hospital Course Ms. Merino is a 33 old female who presented with bee sting with marked localized inflammatory response. Discharge Information Condition at Discharge: Stable Disposition/Orders: D/C to Home Dischare Medications Current Medications Prednisone (Prednisone) 60 mg 1X ONCE PO Last administered on 02/08/19at 20:45; Admin Dose 60 MG; Start 02/08/19 at 21:00; Stop 02/08/19 at 21:01; Status DC Famotidine (Pepcid) 20 mg 1X ONCE PO Last administered on 02/08/19at 20:45; Admin Dose 20 MG; Start 02/08/19 at 21:00; Stop 02/08/19 at 21:01; Status DC Active Scripts Active Epipen 2-King (Epinephrine) 0.3 Mg/0.3 Ml Auto.injct 0.3 Mg IJ 1X PRN PRN Bactrim Ds Tablet (Sulfamethoxazole/Trimethoprim) 1 Each Tablet 1 Tab PO BID Hydrocodone-Ibuprofen 7.5-200 (Hydrocodone/Ibuprofen) 1 Each Tablet 1 Tab PO PRN Q6HRS PRN Zantac (Ranitidine Hcl) 300 Mg Tablet 300 Mg PO BID 10 Days Prednisone 50 Mg Tablet 50 Mg PO DAILY 5 Days Meloxicam 7.5 Mg Tablet 7.5 Mg PO DAILY Indomethacin 50 Mg Capsule 1 Cap PO TID PRN Ultram (Tramadol HCl) 50 Mg Tablet 50 Mg PO PRN Q6HRS PRN Cipro (Ciprofloxacin Hcl) 250 Mg Tablet 1 Tab PO BID Zofran Odt (Ondansetron) 4 Mg Tab.rapdis 1 Tab SL Q8HRS Ibuprofen 400 Mg Tablet 1 Tab PO PRN Q8HRS PRN Dragon Disclaimer This chart was dictated in whole or in part using Voice Recognition software in a busy, high-work load, and often noisy Emergency Department environment. It may contain unintended and wholly unrecognized errors or omissions. ARNULFO REYNA MD Feb 08, 2019 20:26
[2019-02-08 20:35] VITALS: BP 152/99
[2019-02-08] MEDS ORDERED: RANI300T3 PO (20:52)
[2019-02-08] MEDS ORDERED: HYDR-1179 PO (20:52)
[2019-02-08] MEDS ORDERED: PRED50TA PO (20:52)
[2019-02-08] MEDS ORDERED: EPIN0.3A4 IJ (20:52)
[2019-02-08] MEDS ORDERED: SULF1TAB24 PO (20:52)
[2019-02-08] MEDS ORDERED: predniSONE 20 MG TABLET PO ONE (21:00)
[2019-02-08] MEDS ORDERED: FAMOTIDINE 20 MG TABLET PO ONE (21:00)
== END 2019-02-08 20:55 | disposition home or self-care (01) ==
LOC: ER 20:24
DX: T63.441A Toxic effect of venom of bees, accidental (unintentional), initial encounter (principal); L53.0 Toxic erythema; M19.90 Unspecified osteoarthritis, unspecified site; Z88.1 Allergy status to other antibiotic agents; Z91.018 Allergy to other foods; Z91.010 Allergy to peanuts; Z91.048 Other nonmedicinal substance allergy status; Y92.89 Other specified places as the place of occurrence of the external cause
CPT/HCPCS: 99283; J7512

== ENCOUNTER 2019-05-02 19:57 | Emergency (ER) | payer SELFPAY ==
[~2019-05-02] VITALS: Ht 160 cm; Wt 88.0 kg
[~2019-05-02 19:57] MED LIST changes: +EPIN0.3A4 IJ; +HYDR-1179 PO; +INDO50CA15 PO; -INDO50CA5 PO; +PRED50TA PO; +RANI300T3 PO; +SULF1TAB24 PO
[2019-05-02] MEDS ORDERED: IV RINGERS SOLUTION,LACTATED 1,000 ML IV ONE (20:00)
--- NOTE | 2019-05-02 20:00 | ED.ADGEN ---
Past History Past Medical History: Arthritis, Other Past Surgical History: Tonsillectomy, Other Smoking: Non-smoker Alcohol Use: Occasionally Drug Use: Other Adult General Chief Complaint Chief Complaint ".. I ve been having dizzy spells more over the past year.. but I have actually had them for the last 5 yrs. or more...,,,, I told Niral[facility]... but nothing done about it .. but it is really severe tonight... " HPI HPI Patient is a 33 year old female who presents with above hx and complaints of episodic dizziness. No dysrhythmia with the dizzy spells. No history of trauma. No history of ill contacts. No history of immunosuppression. No travel. No recent fever or chills. Has recently had upper respiratory congestion and infection. Patient normally follows with Nirali. Review of Systems Review of Systems Constitutional: Denies fever or chills [] Eyes: Denies change in visual acuity, redness, or eye pain [] HENT: History of nasal congestion Respiratory: Denies cough or shortness of breath [] Cardiovascular: No additional information not addressed in HPI [] GI: Denies abdominal pain, nausea, vomiting, bloody stools or diarrhea [] : Denies dysuria or hematuria [] Musculoskeletal: Denies back pain or joint pain [] Integument: Denies rash or skin lesions [] Neurologic: Denies headache, focal weakness or sensory changes []dizzy compl aints Endocrine: Denies polyuria or polydipsia [] All other systems were reviewed and found to be within normal limits, except as documented in this note. Family History Family History Noncontributory Current Medications Current Medications Current Medications Medications (Trade) Dose Ordered Sig/Geovanny Start Time Stop Time Status Last Admin Dose Admin Aspirin (Children'S Aspirin) 324 mg 1X ONCE 05/02/19 22:30 05/02/19 22:31 DC 05/02/19 23:14 324 MG Clonidine HCl (Catapres Tts-3) 1 patch 1X 05/02/19 22:15 05/02/19 22:05 DC Clonidine HCl (Catapres) 0.2 mg 1X ONCE 05/02/19 22:15 05/02/19 22:05 DC Enoxaparin Sodium (Lovenox 80mg Syringe) 80 mg 1X ONCE 05/02/19 22:30 05/02/19 22:31 DC 05/02/19 23:14 80 MG Iohexol (Omnipaque 350 Mg/ml) 100 ml 1X ONCE 05/02/19 23:00 05/02/19 23:01 DC 05/02/19 23:39 100 ML Lactated Ringer's 1,000 ml @ 1,000 mls/hr Q1H 05/02/19 20:08 05/02/19 21:07 DC Meclizine HCl (Antivert) 25 mg PRN Q6HRS PRN 05/02/19 21:45 05/03/19 01:00 DC 05/02/19 23:14 25 MG Methylprednisolone Sodium Succinate (SOLU-Medrol 125MG VIAL) 125 mg 1X ONCE 05/02/19 22:30 05/02/19 22:31 DC 05/02/19 23:14 125 MG Ondansetron HCl (Zofran Odt) 8 mg 1X ONCE 05/02/19 20:15 05/02/19 20:44 DC Ondansetron HCl (Zofran) 8 mg 1X ONCE 05/02/19 20:45 05/02/19 20:51 DC 05/02/19 21:36 8 MG He nursing for home medications Allergies Allergies Allergies Coded Allergies Type Severity Reaction Last Updated Verified banana Allergy Intermediate 08/03/17 Yes cefaclor Allergy Intermediate 08/03/17 No peanut Allergy Intermediate 08/03/17 Yes tree nut Allergy Intermediate 08/03/17 Yes watermelon Allergy Intermediate 08/03/17 Yes Physical Exam Physical Exam Constitutional: Mild to moderate acute distress, non-toxic appearance. [] HENT: Normocephalic, atraumatic, bilateral external ears normal, oropharynx moist, no oral exudates, nose slightly swollen turbinates with clear rhinorrhea] Eyes: PERRLA, EOMI, conjunctiva normal, no discharge. [] Neck: Normal range of motion, no tenderness, supple, no stridor. [] Cardiovascular:Heart rate regular rhythm, no murmur [] Lungs & Thorax: Bilateral breath sounds equal at apex on auscultation [] Abdomen: Bowel sounds normal, soft, no tenderness, no masses, no pulsatile mas ses. Obese Skin: Warm, dry, no erythema, no rash. [] Back: No tenderness, no CVA tenderness. [] Extremities: No tenderness, no cyanosis, no clubbing, ROM intact, no edema. [] Neurologic: Alert and oriented X 3, normal motor function, normal sensory function, no focal deficits noted. DTRs +2 patella and brachial. No drift. Clipman equal. Fundus generally benign. Air-conduction more than bone conduction and no lateralization with 128 fork. Distal Vib. Psychologic: Affect anxious, judgement normal, mood normal. [] Current Patient Data Vital Signs Vital Signs Date Time Temp Pulse Resp B/P (MAP) Pulse Ox O2 Delivery O2 Flow Rate FiO2 05/03/19 00:42 61 18 140/80 (100) 97 Room Air 05/02/19 20:22 98.5 Lab Results Laboratory Tests Test 05/02/19 20:10 05/02/19 20:42 05/02/19 20:45 Urine Collection Type Unknown Urine Color Yellow Urine Clarity Hazy Urine pH 7.5 Urine Specific [place] 1.015 Urine Protein Neg (NEG-TRACE) Urine Glucose (UA) Neg mg/dL (NEG) Urine Ketones (Stick) Neg mg/dL (NEG) Urine Blood Neg (NEG) Urine Nitrite Neg (NEG) Urine Bilirubin Neg (NEG) Urine Urobilinogen Dipstick 0.2 mg/dL (0.2 mg/dL) Urine Leukocyte Esterase Trace (NEG) Urine RBC Occ /HPF (0-2) Urine WBC Occ /HPF (0-4) Urine Squamous Epithelial Cells Few /LPF Urine Bacteria Few /HPF (0-FEW) Urine Opiates Screen Neg (NEG) Urine Methadone Screen Neg (NEG) Urine Barbiturates Neg (NEG) Urine Phencyclidine Screen Neg (NEG) Urine Amphetamine/Methamphetamine Neg (NEG) Urine Benzodiazepines Screen Neg (NEG) Urine Cocaine Screen Neg (NEG) Urine Cannabinoids Screen Neg (NEG) Urine Ethyl Alcohol Neg (NEG) POC Urine HCG, Qualitative hcg negative (Negative) White Blood Count 14.2 x10^3/uL (4.0-11.0) H Red Blood Count 4.44 x10^6/uL (3.50-5.40) Hemoglobin 12.3 g/dL (12.0-15.5) Hematocrit 36.8 % (36.0-47.0) Mean Corpuscular Volume 83 fL (79-100) Mean Corpuscular Hemoglobin 28 pg (25-35) Mean Corpuscular Hemoglobin Concent 33 g/dL (31-37) Red Cell Distribution Width 14.2 % (11.5-14.5) Platelet Count 338 x10^3/uL (140-400) Neutrophils (%) (Auto) 58 % (31-73) Lymphocytes (%) (Auto) 31 % (24-48) Monocytes (%) (Auto) 9 % (0-9) Eosinophils (%) (Auto) 1 % (0-3) Basophils (%) (Auto) 1 % (0-3) Neutrophils # (Auto) 8.2 x10^3uL (1.8-7.7) H Lymphocytes # (Auto) 4.4 x10^3/uL (1.0-4.8) Monocytes # (Auto) 1.3 x10^3/uL (0.0-1.1) H Eosinophils # (Auto) 0.2 x10^3/uL (0.0-0.7) Basophils # (Auto) 0.1 x10^3/uL (0.0-0.2) Segmented Neutrophils % 63 % (35-66) Band Neutrophils % 1 % (0-9) Lymphocytes % 28 % (24-48) Monocytes % 8 % (0-10) Platelet Estimate Adequate (ADEQUATE) Erythrocyte Sedimentation Rate 26 (0-25) H Prothrombin Time 9.5 SEC (9.4-11.4) Prothrombin Time INR 0.9 (0.9-1.1) Activated Partial Thromboplast Time 26 SEC (23-33) D-Dimer (Sally) 0.71 mg/L (0.00-0.50) H Sodium Level 138 mmol/L (136-145) Potassium Level 3.9 mmol/L (3.5-5.1) Chloride Level 101 mmol/L (98-107) Carbon Dioxide Level 29 mmol/L (21-32) Anion Gap 8 (6-14) Blood Urea Nitrogen 15 mg/dL (7-20) Creatinine 0.8 mg/dL (0.6-1.0) Estimated GFR (Cockcroft-Gault) 82.6 Glucose Level 102 mg/dL (70-99) H Calcium Level 8.5 mg/dL (8.5-10.1) Magnesium Level 1.8 mg/dL (1.8-2.4) Total Bilirubin 0.3 mg/dL (0.2-1.0) Direct Bilirubin 0.1 mg/dL (0.0-0.2) Aspartate Amino Transferase (AST) 21 U/L (15-37) Alanine Aminotransferase (ALT) 35 U/L (14-59) Alkaline Phosphatase 95 U/L (46-116) Creatine Kinase 59 U/L (26-192) Troponin I Quantitative < 0.017 ng/mL (0-0.055) Total Protein 7.9 g/dL (6.4-8.2) Albumin 3.3 g/dL (3.4-5.0) L Lipase 91 U/L (73-393) EKG EKG My interpretation of EKG shows a sinus rhythm at 75 bpm. No acute morphology[] Radiology/Procedures Radiology/Procedures [][address] [address] IMAGING REPORT Signed PATIENT: ANGUS GRIFFITHS GACCOUNT: [id number] : 1985 LOCATION: ER AGE: 33 SEX: F EXAM STATUS: REG ER ORD. PHYSICIAN: ARNULFO REYNA MD REASON: Omni 350,100ml IV.Episodes ddizziness,elevated d-dimer,chest pain PROCEDURE: CT ANGIOGRAPHY CHEST CT angiography chest with contrast PQRS statement: CT scans at this facility use dose reduction including either automated exposure control, iterative reconstructions, and /or weight based radiation dosing via mA and kV modification when appropriate to reduce radiation dose to as low as reasonably achievable. HISTORY: Elevated d-dimer, chest pain, dizziness. TECHNIQUE: Helical CT imaging the chest with 3-D MIP reconstructions of the pulmonary arteries to assess for emboli with 100 mL Omnipaque 350 intravenous contrast. FINDINGS: Heart size normal. Thoracic aorta and esophagus are unremarkable. No enlarged adenopathy in the chest. No pulmonary artery emboli. Trachea and bronchi are unremarkable. No pneumothorax, pulmonary opacities or pleural effusions. Bones are unremarkable. IMPRESSION: No acute process. No pulmonary artery emboli. Electronically signed by: Aristeo Nunes MD (05/03/2019 12:20 AM) [facility] DICTATED AND SIGNED BY: ARISTEO NUNES MD DATE: 05/03/19 0020 CC: ARNULFO REYNA MD; JUAN LUIS KILPATRICK ~ [address] [place] [address] IMAGING REPORT Signed PATIENT: ANGUS GRIFFITHS GACCOUNT: [id number] : 1985 LOCATION: ER AGE: 33 SEX: F EXAM STATUS: REG ER ORD. PHYSICIAN: ARNULFO REYNA MD REASON: Severe dizziness PROCEDURE: CT HEAD WO CONTRAST Examination: CT HEAD WO CONTRAST History: Severe dizziness Comparison/Correlation: None Findings: Axial images of the head were obtained without contrast. Ventricles are normal size. No intracranial hemorrhage, midline shift, or mass effect. Bony structures are unremarkable. Visualized paranasal sinuses are unremarkable. Impression: Normal CT head without contrast. RS Compliance Statement: One or more of the following individualized dose reduction techniques were utilized for this examination: 1. Automated exposure control 2. Adjustment of the mA and/or kV according to patient size 3. Use of iterative reconstruction technique Electronically signed by: Ely Fuentes MD (05/02/2019 9:17 PM) [facility] DICTATED AND SIGNED BY: ELY FUENTES MD DATE: 05/02/192116 CC: ARNULFO REYNA MD; JUAN LUIS KILPATRICK ~ Course & Med Decision Making Course & Med Decision Making Pertinent Labs and Imaging studies reviewed. (See chart for details) Follow-up primary care. Patient take a daily aspirin. Patient take meclizine 25 mg up 4 times a day. Consider follow-up with neurology. Consider follow-up audiology/ENT, return of any concerns. [place] causes of prednisone 50 mg daily for 5 days. Must follow up. [] Final Impression Final Impression 1. Dizzy[] 2. Viral Syndrome 3. Leukocytosis 14.2 4. Min. Elevation D. dimer 0.71 5. Min. Elevation ESR 26 Dragon Disclaimer Dragon Disclaimer This electronic medical record was generated, in whole or in part, using a voice recognition dictation system. Dragon Disclaimer This chart was dictated in whole or in part using Voice Recognition software in a busy, high-work load, and often noisy Emergency Department environment. It may contain unintended and wholly unrecognized errors or omissions. ARNULFO REYNA MD May 02, 2019 20:00
[2019-05-02] MEDS ORDERED: IV RINGERS SOLUTION,LACTATED 1,000 ML IV SCH (20:08)
[2019-05-02] MEDS ORDERED: ONDANSETRON ODT 4 MG TAB.RAPDIS PO ONE (20:15)
[2019-05-02] MEDS ORDERED: ONDANSETRON PF 4 MG/2 ML VIAL. ONE (20:43)
[2019-05-02] MEDS ORDERED: ONDANSETRON PF 4 MG/2 ML VIAL. IV ONE (20:45)
[2019-05-02 20:58] LABS: BARBITURATES NEG (NEG); BENZODIAZEPINES NEG (NEG); CANNABINOIDS NEG (NEG); COCAINE NEG (NEG); METHADONE NEG (NEG); OPIATES NEG (NEG); PHENCYCLIDINE NEG (NEG)
[2019-05-02 21:05] LABS: AMPHETAMINE/METHAMPHETAMINE NEG (NEG)
[2019-05-02 21:14] LABS: BASO # 0.1 x10^3/uL (0.0-0.2); BASO % 1 % (0-3); EOS # 0.2 x10^3/uL (0.0-0.7); EOS % 1 % (0-3); HEMATOCRIT 36.8 % (36.0-47.0); HEMOGLOBIN 12.3 g/dL (12.0-15.5); LYMPH # 4.4 x10^3/uL (1.0-4.8); LYMPH % 31 % (24-48); MEAN CORPUSCULAR HEMOGLOBIN 28 pg (25-35); MEAN CORPUSCULAR HGB CONC 33 g/dL (31-37); MEAN CORPUSCULAR VOLUME 83 fL (79-100); MONO # 1.3 x10^3/uL (0.0-1.1); MONO % 9 % (0-9); NEUT # 8.2 x10^3uL (1.8-7.7); NEUT % 58 % (31-73); PLATELET COUNT 338 x10^3/uL (140-400); RED BLOOD COUNT 4.44 x10^6/uL (3.50-5.40); RED CELL DISTRIBUTION WIDTH 14.2 % (11.5-14.5); WHITE BLOOD COUNT 14.2 x10^3/uL (4.0-11.0)
--- NOTE | 2019-05-02 21:15 | EKG ---
[address] [address] Test Date: 2019-05-02 Test Time: 21:12:30 Pat Name: ANGUS GRIFFITHS Department: Room: Gender: F Credit Director: : 1985 Requested By: ARNULFO REYNA Order Number: [id number] Reading MD: Measurements Intervals [place] Rate: 75 P: 50 NM: 148 QRS: 25 QRSD: 82 T: 15 QT: 352 QTc: 396 Interpretive Statements SINUS RHYTHM NORMAL ECG RI6.01 Compared to ECG 03/28/2018 18:06:09 No significant changes
--- NOTE | 2019-05-02 21:20 | RAD ---
Examination: CT HEAD WO CONTRAST History: Severe dizziness Comparison/Correlation: None Findings: Axial images of the head were obtained without contrast. Ventricles are normal size. No intracranial hemorrhage, midline shift, or mass effect. Bony structures are unremarkable. Visualized paranasal sinuses are unremarkable. Impression: Normal CT head without contrast. PQRS Compliance Statement: One or more of the following individualized dose reduction techniques were utilized for this examination: 1. Automated exposure control 2. Adjustment of the mA and/or kV according to patient size 3. Use of iterative reconstruction technique Electronically signed by: Bhupinder Tinoco MD (05/02/2019 9:17 PM) [facility]
[2019-05-02 21:25] LABS: ALBUMIN 3.3 g/dL (3.4-5.0); CALCIUM 8.5 mg/dL (8.5-10.1); CREATININE 0.8 mg/dL (0.6-1.0); DIRECT BILIRUBIN 0.1 mg/dL (0.0-0.2); GFR 82.6; MAGNESIUM 1.8 mg/dL (1.8-2.4); POTASSIUM 3.9 mmol/L (3.5-5.1); TOTAL BILIRUBIN 0.3 mg/dL (0.2-1.0); TOTAL PROTEIN 7.9 g/dL (6.4-8.2)
[2019-05-02 21:27] LABS: CLARITY,URINE HAZY; COLOR,URINE YELLOW
[2019-05-02 21:28] LABS: BACTERIA,URINE FEW /HPF (0-FEW); BILIRUBIN,URINE NEG (NEG); GLUCOSE,URINE NEG (NEG); NITRITE,URINE NEG (NEG); RBC,URINE OCC /HPF (0-2); SQUAMOUS EPITHELIAL CELL,UR FEW /LPF; UROBILINOGEN,URINE 0.2 mg/dL (0.2 mg/dL); WBC,URINE OCC /HPF (0-4)
[2019-05-02] MEDS ORDERED: MECLIZINE 12.5 MG TABLET. PO PRN (21:45)
[2019-05-02] MEDS ORDERED: cloNIDine TTS-3 1 PATCH PATCH TD SCH (22:15)
[2019-05-02] MEDS ORDERED: cloNIDine HCL 0.1 MG TABLET PO ONE (22:15)
[2019-05-02 22:26] LABS: SEDIMENTATION RATE 26 (0-25)
[2019-05-02] MEDS ORDERED: ASPIRIN 81 MG TAB.CHEW PO ONE (22:30)
[2019-05-02] MEDS ORDERED: ENOXAPARIN ** NOTE DOSE ** SYRINGE SQ ONE (22:30)
[2019-05-02] MEDS ORDERED: methylPREDNISolone SOD SUCC PF 125 MG/2 ML VIAL. IV ONE (22:30)
[2019-05-02 22:32] LABS: % BANDS 1 % (0-9); % LYMPHS 28 % (24-48); % MONOS 8 % (0-10); % SEGS 63 % (35-66)
[2019-05-02 22:33] LABS: PLT ESTIMATE ADEQUATE (ADEQUATE)
[2019-05-02] MEDS ORDERED: IOHEXOL 350 MG/ML 100 ML VIAL. IV ONE (23:00)
--- NOTE | 2019-05-03 00:23 | RAD ---
CT angiography chest with contrast PQRS statement: CT scans at this facility use dose reduction including either automated exposure control, iterative reconstructions, and /or weight based radiation dosing via mA and kV modification when appropriate to reduce radiation dose to as low as reasonably achievable. HISTORY: Elevated d-dimer, chest pain, dizziness. TECHNIQUE: Helical CT imaging the chest with 3-D MIP reconstructions of the pulmonary arteries to assess for emboli with 100 mL Omnipaque 350 intravenous contrast. FINDINGS: Heart size normal. Thoracic aorta and esophagus are unremarkable. No enlarged adenopathy in the chest. No pulmonary artery emboli. Trachea and bronchi are unremarkable. No pneumothorax, pulmonary opacities or pleural effusions. Bones are unremarkable. IMPRESSION: No acute process. No pulmonary artery emboli. Electronically signed by: Tyson Nunes MD (05/03/2019 12:20 AM) [facility]
[2019-05-03 00:42] VITALS: BP 140/80
[2019-05-03] MEDS ORDERED: MECL25TA3 PO (00:51)
[2019-05-03] MEDS ORDERED: PRED50TA PO (00:51)
--- NOTE | 2019-05-03 02:42 | RAD ---
PA and lateral chest x-ray HISTORY: Dizziness and nausea. FINDINGS: Heart size normal. Mediastinal silhouette is normal. No pneumothorax, pulmonary opacities or pleural effusions. Bones are unremarkable. IMPRESSION: No acute process. Electronically signed by: Tyson Nunes MD (05/03/2019 2:39 AM) [facility]
== END 2019-05-03 00:55 | disposition home or self-care (01) ==
LOC: ER 19:57
DX: B34.9 Viral infection, unspecified (principal); R42 Dizziness and giddiness; D72.829 Elevated white blood cell count, unspecified; R79.1 Abnormal coagulation profile; R70.0 Elevated erythrocyte sedimentation rate; M19.90 Unspecified osteoarthritis, unspecified site; Z88.1 Allergy status to other antibiotic agents; Z91.018 Allergy to other foods; Z91.010 Allergy to peanuts
CPT/HCPCS: 36415; 70450; 71046; 71275; 80048; 80076; 80307; 81001; 81025; 82550; 83690; 83735; 84443; 84484; 85007; 85025; 85379; 85610; 85651; 85730; 87086; 93005; 96361; 96372; 96374; 96375; 99285; J1650; J2405; J2930; J7120; J8597; Q9967

== ENCOUNTER 2019-07-11 10:57 | Emergency (ER) | payer SELFPAY ==
[~2019-07-11] VITALS: Ht 160 cm; Wt 88.0 kg
[~2019-07-11 10:57] MED LIST changes: +MECL25TA3 PO
--- NOTE | 2019-07-11 11:22 | PHYS DOC ---
Past History Past Medical History: Anxiety, Arthritis, Other Additional Past Medical Histor: BIPOLAR, ADHD Past Surgical History: Tonsillectomy, Other Additional Past Surgical Histo: LEFT FOOT Smoking: Non-smoker Alcohol Use: Occasionally Drug Use: Other Adult General HPI HPI Patient is a 33-year-old female presents complaining of right-sided pelvic pain. This started yesterday. It waxes and wanes, and was severe when it hits at its worst. Movement seems to make it a little bit worse. Some nausea without any vomiting or diarrhea. Her last menstrual period was June 07, 2019, and she is trying to get . She last took a home test 1-2 weeks ago which was negative. She has been nauseated for the past month, since her last menstrual cycle. There has been no migration of the discomfort, and no radiation of the discomfort. She denies any vaginal bleeding or discharge. No fever. No dysuria or hematuria.[] Review of Systems Review of Systems Constitutional: Denies fever or chills [] Eyes: Denies change in visual acuity, redness, or eye pain [] HENT: Denies nasal congestion or sore throat [] Respiratory: Denies cough or shortness of breath [] Cardiovascular: No chest pain or palpitations[] GI: Denies abdominal pain, nausea, vomiting, bloody stools or diarrhea [] : Denies dysuria or hematuria, see history of present illness [] Musculoskeletal: Denies back pain or joint pain [] Integument: Denies rash or skin lesions [] Neurologic: Denies headache, focal weakness or sensory changes [] Endocrine: Denies polyuria or polydipsia [] All other systems were reviewed and found to be within normal limits, except as documented in this note. Allergies Allergies Allergies Coded Allergies Type Severity Reaction Last Updated Verified banana Allergy Intermediate 08/03/17 Yes cefaclor Allergy Intermediate 08/03/17 No peanut Allergy Intermediate 08/03/17 Yes tree nut Allergy Intermediate 08/03/17 Yes watermelon Allergy Intermediate 08/03/17 Yes Physical Exam Physical Exam Constitutional: Well developed, well nourished, no acute distress, non-toxic appearance. [] HENT: Normocephalic, atraumatic, bilateral external ears normal, oropharynx moist, no oral exudates, nose normal. [] Eyes: PERRLA, EOMI, conjunctiva normal, no discharge. [] Neck: Normal range of motion, no tenderness, supple, no stridor. [] Cardiovascular:Heart rate regular rhythm, no murmur [] Lungs & Thorax: Bilateral breath sounds clear to auscultation [] Abdomen: Bowel sounds normal, soft, no tenderness, no masses, no pulsatile masses. Pelvic exam performed with egyptologist: External genitalia, [place]'s glands, urethra, and Bartholin's glands: No lesions, no bleeding, no rash. Vaginal vault mild amount of thin, watery discharge, no lesions, no blood. Cervix: Parous os, no cervical motion tenderness[] Skin: Warm, dry, no erythema, no rash. [] Back: No tenderness, no CVA tenderness. [] Extremities: No tenderness, no cyanosis, no clubbing, ROM intact, no edema. [] Neurologic: Alert and oriented X 3, normal motor function, normal sensory function, no focal deficits noted. [] Psychologic: Affect normal, judgement normal, mood normal. [] EKG EKG [] Radiology/Procedures Radiology/Procedures PROCEDURE: CT ABDOMEN PELVIS WO CONTRAST EXAM: Abdomen and pelvis CT without intravenous contrast. HISTORY: Right lower quadrant pain. TECHNIQUE: Computed tomographic images of the abdomen and pelvis were obtained without intravenous contrast. Multiplanar reformatting was performed. *One or more of the following individualized dose reduction techniques were utilized for this examination: 1. Automated exposure control. 2. Adjustment of the mA and/or kV according to patient size. 3. Use of iterative reconstruction technique. COMPARISON: 03/28/2018. FINDINGS: Evaluation of the lower thorax is unremarkable. There is hepatomegaly and hepatic steatosis. No suspicious hepatic lesion is seen. The gallbladder, pancreas, spleen and adrenal glands are unremarkable. There is lateral left renal cortical scarring. The bladder is unremarkable. There is no appendicitis. There is no bowel obstruction. There is no abnormal bowel wall thickening. The bladder is unremarkable. There are multiple right greater than left ovarian follicles and there is trace pelvic free fluid, within physiologic limits. The aorta is normal in caliber. There is a circumaortic left renal vein, a normal variant. There are nonspecific lymph nodes within the root of the mesentery, not within limits to suggest mesenteric adenitis or neoplasm. No suspicious osseous lesion is seen. IMPRESSION: 1. Hepatomegaly and hepatic steatosis. 2. Left renal cortical scarring. 3. No convincing acute abdominal or pelvic finding[] Course & Med Decision Making Course & Med Decision Making Pertinent Labs and Imaging studies reviewed. (See chart for details) Emergency department course: Patient arrived, was placed in bed, and tolerated exam well. Pelvic exam was performed with egyptologist. She was transported to and from [place] with any complications. After the return of the laboratory and imaging findings, these were discussed with the patient who voiced understanding. All questions were answered. She was discharged in improved condition. Decision-making: There is no evidence of PID, no evidence of appendicitis, kidn ey stone, pyelonephritis. Do not believe this to be ovarian torsion. No evidence of an ectopic .[] Dragon Disclaimer Dragon Disclaimer This electronic medical record was generated, in whole or in part, using a voice recognition dictation system. Departure Departure: Impression: Primary Impression: Pain in the abdomen Disposition: HOME, SELF-CARE Condition: IMPROVED Referrals: JUAN LUIS KILPATRICK (PCP) Follow-up in 2 days Patient Instructions: Abdominal Pain Additional Instructions: Follow-up with your regular doctor in 2 days. Take the medicine as prescribed. Return to the ER if worsening pain, unable to tolerate liquids, or any other concerns. Scripts Oxaprozin (OXAPROZIN) 600 Mg Tablet 600 MG PO BID for pain, #20 TAB Prov: SANDIE HAN DO 07/11/19 Hyoscyamine Sulfate (LEVSIN) 0.125 Mg Tablet 0.125 MG PO QID for abdominal pain/cramping, #30 TAB Prov: SANDIE HAN DO 07/11/19 Problem Qualifiers Primary Impression: Pain in the abdomen Abdominal location: right lower quadrant Qualified Codes: R10.31 - Right lower quadrant pain SANDIE HAN DO Jul 11, 2019 11:22
[2019-07-11] MEDS ORDERED: ACETAMINOPHEN/CODEINE 300/30MG TABLET PO ONE (11:30)
[2019-07-11] MEDS ORDERED: PROCHLORPERAZINE 10 MG/2 ML VIAL. IV ONE (11:30)
[2019-07-11] MEDS ORDERED: IV NORMAL SALINE 1,000ML 1,000 ML IV ONE (11:45)
[2019-07-11 12:08] LABS: BASO # 0.1 x10^3/uL (0.0-0.2); BASO % 0 % (0-3); EOS # 0.1 x10^3/uL (0.0-0.7); EOS % 1 % (0-3); HEMATOCRIT 35.2 % (36.0-47.0); HEMOGLOBIN 11.6 g/dL (12.0-15.5); LYMPH # 3.1 x10^3/uL (1.0-4.8); LYMPH % 26 % (24-48); MEAN CORPUSCULAR HEMOGLOBIN 28 pg (25-35); MEAN CORPUSCULAR HGB CONC 33 g/dL (31-37); MEAN CORPUSCULAR VOLUME 83 fL (79-100); MONO % 9 % (0-9); NEUT # 7.4 x10^3uL (1.8-7.7); NEUT % 64 % (31-73); PLATELET COUNT 292 x10^3/uL (140-400); RED BLOOD COUNT 4.22 x10^6/uL (3.50-5.40); WHITE BLOOD COUNT 11.7 x10^3/uL (4.0-11.0)
[2019-07-11 12:12] LABS: PREG TEST PT QUAL NEGATIVE (NEG)
[2019-07-11 12:16] LABS: ALBUMIN 3.1 g/dL (3.4-5.0); ALBUMIN/GLOBULIN RATIO 0.7 (1.0-1.7); CALCIUM 8.3 mg/dL (8.5-10.1); CREATININE 0.6 mg/dL (0.6-1.0); GFR 115.1; POTASSIUM 3.7 mmol/L (3.5-5.1); TOTAL BILIRUBIN 0.2 mg/dL (0.2-1.0); TOTAL PROTEIN 7.3 g/dL (6.4-8.2)
[2019-07-11 12:32] LABS: BACTERIA,URINE FEW /HPF (0-FEW); BILIRUBIN,URINE NEG (NEG); CLARITY,URINE CLEAR; COLOR,URINE YELLOW; GLUCOSE,URINE NEG (NEG); NITRITE,URINE NEG (NEG); RBC,URINE 0 /HPF (0-2); SQUAMOUS EPITHELIAL CELL,UR OCC /LPF; UROBILINOGEN,URINE 0.2 mg/dL (0.2 mg/dL)
--- NOTE | 2019-07-11 12:39 | RAD ---
EXAM: Abdomen and pelvis CT without intravenous contrast. HISTORY: Right lower quadrant pain. TECHNIQUE: Computed tomographic images of the abdomen and pelvis were obtained without intravenous contrast. Multiplanar reformatting was performed. *One or more of the following individualized dose reduction techniques were utilized for this examination: 1. Automated exposure control. 2. Adjustment of the mA and/or kV according to patient size. 3. Use of iterative reconstruction technique. COMPARISON: 03/28/2018. FINDINGS: Evaluation of the lower thorax is unremarkable. There is hepatomegaly and hepatic steatosis. No suspicious hepatic lesion is seen. The gallbladder, pancreas, spleen and adrenal glands are unremarkable. There is lateral left renal cortical scarring. The bladder is unremarkable. There is no appendicitis. There is no bowel obstruction. There is no abnormal bowel wall thickening. The bladder is unremarkable. There are multiple right greater than left ovarian follicles and there is trace pelvic free fluid, within physiologic limits. The aorta is normal in caliber. There is a circumaortic left renal vein, a normal variant. There are nonspecific lymph nodes within the root of the mesentery, not within limits to suggest mesenteric adenitis or neoplasm. No suspicious osseous lesion is seen. IMPRESSION: 1. Hepatomegaly and hepatic steatosis. 2. Left renal cortical scarring. 3. No convincing acute abdominal or pelvic finding. Electronically signed by: Suzi To MD (07/11/2019 12:36 PM) [facility]
[2019-07-11] MEDS ORDERED: OXAP600T2 PO (12:59)
[2019-07-11] MEDS ORDERED: HYOS0.1264 PO (12:59)
[2019-07-11 13:13] VITALS: BP 120/74
== END 2019-07-11 13:12 | disposition home or self-care (01) ==
LOC: ER 10:57
DX: R10.31 Right lower quadrant pain (principal); R10.2 Pelvic and perineal pain; R11.0 Nausea; M19.90 Unspecified osteoarthritis, unspecified site; Z88.1 Allergy status to other antibiotic agents; Z91.018 Allergy to other foods; Z91.010 Allergy to peanuts
CPT/HCPCS: 36415; 74176; 80053; 81001; 81025; 84703; 85025; 87086; 87491; 87591; 96374; 99285; J0780; Q0111; J7030

== ENCOUNTER 2019-10-20 21:34 | Emergency (ER) | payer SELFPAY ==
[~2019-10-20] VITALS: Ht 160 cm; Wt 88.7 kg
[~2019-10-20 21:34] MED LIST changes: +HYOS0.1264 PO; +MECL-75 PO; -MECL25TA3 PO; +OXAP600T2 PO
[2019-10-20 22:45] VITALS: BP 131/86
[2019-10-20] MEDS ORDERED: CYCL-331 PO (23:24)
[2019-10-20] MEDS ORDERED: KETOROLAC 30 MG/ML VIAL. IM ONE (23:45)
[2019-10-20] MEDS ORDERED: ORPHENADRINE CITRATE 60 MG/2 ML VIAL. IM ONE (23:45)
--- NOTE | 2019-10-21 00:29 | PHYS DOC ---
Past History Past Medical History: No Pertinent History Additional Past Medical Histor: BIPOLAR, ADHD Past Surgical History: Tonsillectomy Additional Past Surgical Histo: LEFT FOOT Smoking: Non-smoker Alcohol Use: None Drug Use: None Adult General Chief Complaint Chief Complaint: BACK PAIN OR INJURY [facility] HPI Patient is a 34-year-old female with low back pain. Described as spasm when she tries to get up. She does lift heavy things in [place] last time she did that was on Sunday but the pain started yesterday she did not know if that might be the cause though. No bowel or bladder incontinence no abdominal pain no shooting pains below the knee no numbness no tingling no weakness. Just this pain trying Advil with minimal relief hot bath made it worse. Review of Systems Review of Systems Constitutional: Denies fever or chills [] Eyes: Denies change in visual acuity, redness, or eye pain [] HENT: Denies nasal congestion or sore throat [] Respiratory: Denies cough or shortness of breath [] Cardiovascular: No additional information not addressed in HPI [] GI: Denies abdominal pain, nausea, vomiting, bloody stools or diarrhea [] Neurologic: Denies headache, focal weakness or sensory changes [] Endocrine: Denies polyuria or polydipsia [] All other systems were reviewed and found to be within normal limits, except as documented in this note. Current Medications Current Medications Current Medications Medications (Trade) Dose Ordered Sig/[facility] Start Time Stop Time Status Last Admin Dose Admin Ketorolac Tromethamine (Toradol 30mg Vial) 30 mg 1X ONCE 10/20/19 23:45 10/20/19 23:50 DC 10/21/19 00:15 30 MG Orphenadrine Citrate (Norflex) 60 mg 1X ONCE 10/20/19 23:45 10/20/19 23:50 DC 10/21/19 00:16 60 MG Allergies Allergies Allergies Coded Allergies Type Severity Reaction Last Updated Verified banana Allergy Intermediate 08/03/17 Yes cefaclor Allergy Intermediate 08/03/17 No peanut Allergy Intermediate 08/03/17 Yes tree nut Allergy Intermediate 08/03/17 Yes watermelon Allergy Intermediate 08/03/17 Yes Physical Exam Physical Exam Constitutional: Well developed, well nourished, no acute distress, non-toxic appearance. [] HENT: Normocephalic, atraumatic, bilateral external ears normal, oropharynx moist, no oral exudates, nose normal. [] Eyes: PERRLA, EOMI, conjunctiva normal, no discharge. [] Neck: Normal range of motion, no tenderness, supple, no stridor. [] Pulmonary: Normal respiratory effort no increased work of breathing no obvious chest wall trauma Abdomen: Bowel sounds normal, soft, no tenderness, no masses, no pulsatile masses. [] Skin: Warm, dry, no erythema, no rash. [] Back: Palpable spasm noted especially on the right fairly significant actually pain is definitely reproducible with going from a lying to a standing position patient was able to ambulate in the emergency room to the bathroom and back Extremities: No tenderness, no cyanosis, no clubbing, ROM intact, no edema. [] Neurologic: Alert and oriented X 3, normal motor function, normal sensory f unction, no focal deficits noted. [] Psychologic: Affect normal, judgement normal, mood normal. [] Current Patient Data Lab Results Laboratory Tests Test 10/20/19 23:59 POC Urine HCG, Qualitative hcg negative (Negative) EKG EKG [] Radiology/Procedures Radiology/Procedures [] Course & Med Decision Making Course & Med Decision Making Pertinent Labs and Imaging studies reviewed. (See chart for details) [] See nurse's note for complete vitals patient was afebrile not tachycardic. In summary this is a 34-year-old female presenting with low back pain very likely musculoskeletal in nature I think it is muscle spasm based on clinical examination I did try Toradol and orphenadrine in the emergency room with prescription for Flexeril and I gave her a short time off work advised gradual return to activity rest ice as needed return precautions discussed and she voiced understanding no signs of cauda equina Dragon Disclaimer Dragon Disclaimer This electronic medical record was generated, in whole or in part, using a voice recognition dictation system. Departure Departure: Impression: Primary Impression: Back pain Disposition: HOME, SELF-CARE Condition: STABLE Patient Instructions: Back Pain, Adult, [id number] Scripts Cyclobenzaprine Hcl (CYCLOBENZAPRINE HCL) 10 Mg Tablet 1 TAB PO TID PRN for PAIN, #15 TAB Prov: LIEN TRAN MD 10/20/19 LIEN TRAN MD Oct 21, 2019 00:29
== END 2019-10-21 00:45 | disposition home or self-care (01) ==
LOC: ER 21:34
DX: M54.5 Low back pain (principal); M62.830 Muscle spasm of back; Z88.1 Allergy status to other antibiotic agents; Z91.010 Allergy to peanuts; Z91.018 Allergy to other foods
CPT/HCPCS: 81025; 96372; 99284; J1885; J2360